=== PATIENT | female | born 1940 | race Caucasian/White ===

== ENCOUNTER 2022-02-08 13:16 | Emergency (ER) | payer MEDICARE, MEDICAID, SELFPAY ==
[2022-02-08] VITALS (15 sets, daily range): BP systolic 138–173; BP diastolic 64–87; PULSE 54–63; RESP 18; TEMP 36.6; O2SAT 94–98; BMI 25.4
--- NOTE | 2022-02-08 13:38 | DI.CT.S_ITS ---
PROCEDURE: CT CERVICAL SPINE WO CON INDICATIONS: Fall TECHNIQUE: Noncontrast 3 mm thick sections acquired from the skull base to the T4 level. Sagittal and coronal reformats were then constructed. For radiation dose reduction, the following was used: automated exposure control, adjustment of mA and/or kV according to patient size. COMPARISON: None. FINDINGS: Image quality: Excellent. Bones: Moderate overall spondylosis. No fracture or traumatic subluxation. There is overall straightening normal cervical lordosis. Soft tissues: Apically emphysema and scarring. No actionable thyroid nodule identified. No prevertebral soft tissue swelling. There is soft tissue pannus, likely chronic at C1/C2. IMPRESSION: Moderate overall spondylosis. No acute fracture or traumatic subluxation of the cervical spine. Dictated by: Bry Teresa M.D. on 02/08/2022 at 14:20 Approved by: Bry Teresa M.D. on 02/08/2022 at 14:22
--- NOTE | 2022-02-08 13:39 | ED_ITS ---
HPI - Fall General Chief Complaint: Fall Stated Complaint: GLF Time Seen by Provider: 02/08/22 13:23 Source: patient and EMS Mode of arrival: EMS History of Present Illness HPI Narrative: 81-year-old female. Not on anticoagulation. Is brought in by EMS after it was reported that she was going to go use the restroom and fell forward hitting her face on the toilet. The patient states that she just lost her balance. She thinks that she missed the toilet and hit her head. There was no loss of consciousness. No vision changes. She is no extremity injuries. No back pain. Review of Systems Constitutional Comments: No headache Eyes Comments: No vision changes Cardiovascular Comments: No chest pain or palpitations Respiratory Comments: No problems breathing Gastrointestinal Comments: No abdominal pain Integumentary/Breasts Comments: Bruising above left eye Neurologic Comments: No lightheadedness or dizziness Hematologic/Lymphatic On Anticoagulants: No Patient History Substance Use Type: does not use Exam Initial Vital Signs Initial Vital Signs: Vital Signs Temperature 98 F 02/08/22 13:20 Pulse Rate 54 L 02/08/22 13:20 Respiratory Rate 18 02/08/22 13:20 Blood Pressure 173/74 H 02/08/22 13:20 Pulse Oximetry 96 02/08/22 13:20 Oxygen Delivery Method 02/08/22 13:20 Const General: cooperative and comfortable HENMT Face and sinus: other (Contusion above left thigh) Eyes Pupils: PERRL EOM: EOM intact bilaterally Other: Contusion above left eye Chest Chest: No tenderness Resp Effort & Inspection: normal respiratory effort Auscultation: clear to auscultation bilaterally Cardio Rate: regular rate Rhythm: regular rhythm Back/Spine/Pelvis Cervical Spine: cervical muscular tenderness and No cervical spinal tenderness Skin Other: Contusion above left eye. Neuro General: patient alert, patient awake, patient oriented x3 and moves all ext remities Speech: speech normal Extrem General: capillary refill normal Psych Appearance: grossly normal and well kempt Course Orders Ordered: ED Orders 02/08/22 13:38 CT cervical spine wo con Stat 02/08/22 13:39 CT head/brain wo con Stat Vital Signs Vital signs: Vital Signs - 8 hr 02/08/22 13:20 02/08/22 13:22 02/08/22 13:23 Temperature 98 F Pulse Rate 54 L Respiratory Rate 18 Blood Pressure 173/74 H 173/74 H Pulse Oximetry 96 96 Oxygen Delivery Method Room Air 02/08/22 13:58 02/08/22 13:59 02/08/22 13:59 Temperature Pulse Rate 59 L 57 L Respiratory Rate Blood Pressure 172/72 H Pulse Oximetry 97 Oxygen Delivery Method 02/08/22 14:00 02/08/22 14:01 02/08/22 14:01 Temperature Pulse Rate 56 L 56 L Respiratory Rate Blood Pressure 156/71 H Pulse Oximetry 98 98 Oxygen Delivery Method MDM - Fall Imaging Data CT - cervical spine: Radiologist's Impression: [address] [address] [address] Scan Report Signed Patient: Tracey Rodriguez MR#: [id number] : 1940 Acct:[id number] Age/Sex: 81 / F Date of Service: 02/08/22 Loc: ED Accession Number: [id number] ?? Procedure: CT cervical spine wo con Ordering Provider: Rodrigo Ramírez D.O. PROCEDURE:? CT CERVICAL SPINE WO CON ? INDICATIONS:? Fall ? TECHNIQUE:? Noncontrast 3 mm thick sections acquired from the skull base to the T4 level.? Sagittal and coronal reformats were then constructed.? For radiation dose reduction, the following was used:? automated exposure control, adjustment of mA and/or kV according to patient size.? ? COMPARISON:? None. ? FINDINGS:? Image quality:? Excellent.? ? Bones:? Moderate overall spondylosis.? No fracture or traumatic subluxation.? There is overall straightening normal cervical lordosis. ? Soft tissues:? Apically emphysema and scarring.? No actionable thyroid nodule identified. ?No prevertebral soft tissue swelling.? There is soft tissue pannus, likely chronic at C1/C2.? ? IMPRESSION:? Moderate overall spondylosis.? No acute fracture or traumatic subluxation of the cervical spine. ? Dictated by: Bry Teresa M.D. on 02/08/2022 at 14:20 ? ? Approved by: Bry Teresa M.D. on 02/08/2022 at 14:22? CT scan - head: Radiologist's Impression: [address] [address] [address] Scan Report Signed Patient: Tracey Rodriguez MR#: [id number] : 1940 Acct:[id number] Age/Sex: 81 / F Date of Service: 02/08/22 Loc: ED Accession Number: [id number] ?? Procedure: CT head/brain wo con Ordering Provider: Rodrigo Ramírez D.O. PROCEDURE:? CT HEAD/BRAIN WO CON ? INDICATIONS:? Fall with contusion above left eye ? TECHNIQUE:? Noncontrast 4.5 mm thick angled axial sections acquired from the foramen magnum to the vertex, with coronal and sagittal reformats.? For radiation dose reduction, the following was used:? automated exposure control, adjustment of mA and/or kV according to patient size.? ? COMPARISON:? None. ? FINDINGS:? Image quality: Excellent ? CSF spaces: Basal cisterns are patent. Lateral ventricles are symmetric. Volume:? Periventricular white matter hypoattenuation is commonly seen with chronic small vessel disease. Volume loss is present. These findings are [id number] ? Brain: No intracranial hemorrhage. Hoffman-white differentiation is grossly maintained. ? Craniofacial structures:? Left supraorbital soft tissue contusion.? No displaced fracture. ? IMPRESSION:? No displaced fracture.? left supraorbital soft tissue contusion.? No acute intracranial abnormality.? ? ? Dictated by: Bry Teresa M.D. on 02/08/2022 at 14:18 ? ? Approved by: Bry Teresa M.D. on 02/08/2022 at 14:20?? MDM Narrative Medical decision making narrative: CT scan showed no signs of fracture. Has a contusion above the left eye. No other injuries found on the exam nor reported by the patient. Will discharge patient back to her living facility. Discharge Plan Departure Patient Disposition: Home Clinical Impression: Contusion of eye, left Instructions: How to Prevent Falls Activity Restrictions/Additional Instructions: You can continue to take all of your medications as directed. I do recommend that you place some ice above the left eye. Return to the emergency department for any new or worsening symptoms. Referrals: Jc Lepe MD [Primary Care Provider] -
--- NOTE | 2022-02-08 13:39 | DI.CT.S_ITS ---
PROCEDURE: CT HEAD/BRAIN WO CON INDICATIONS: Fall with contusion above left eye TECHNIQUE: Noncontrast 4.5 mm thick angled axial sections acquired from the foramen magnum to the vertex, with coronal and sagittal reformats. For radiation dose reduction, the following was used: automated exposure control, adjustment of mA and/or kV according to patient size. COMPARISON: None. FINDINGS: Image quality: Excellent CSF spaces: Basal cisterns are patent. Lateral ventricles are symmetric. Volume: Periventricular white matter hypoattenuation is commonly seen with chronic small vessel disease. Volume loss is present. These findings are [id number] Brain: No intracranial hemorrhage. Hoffman-white differentiation is grossly maintained. Craniofacial structures: Left supraorbital soft tissue contusion. No displaced fracture. IMPRESSION: No displaced fracture. left supraorbital soft tissue contusion. No acute intracranial abnormality. Dictated by: Bry Teresa M.D. on 02/08/2022 at 14:18 Approved by: Bry Teresa M.D. on 02/08/2022 at 14:20
--- NOTE | 2022-02-08 15:15 | PC.NURSE ---
called to send back to [facility], no answer, message left.
--- NOTE | 2022-02-08 16:13 | PC.NURSE ---
called [facility], requested they come transport pt back pt is discharged and i was told she can take a taxi instructed facility based on her recent fall and hx of falls we would not discharge her to return by taxi and pt would be returning via [facility] for safest discharge.
== END 2022-02-08 17:55 | disposition home or self-care (01) ==
PROVIDERS: Emergency Provider Emergency Medicine; PCP Family Medicine Sports Medicine
DX: S00.12XA Contusion of left eyelid and periocular area, initial encounter (principal); W18.30XA Fall on same level, unspecified, initial encounter
CPT/HCPCS: 70450; 72125; 99284

== ENCOUNTER 2023-08-29 00:39 | Emergency (ER) | payer MEDICARE, MEDICAID, SELFPAY ==
[2023-08-29] VITALS (14 sets, daily range): BP systolic 130–180; BP diastolic 56–83; PULSE 61–77; RESP 18–20; TEMP 36.6; O2SAT 96–98; BMI 26.2
--- NOTE | 2023-08-29 00:44 | ED_ITS ---
HPI - Weakness General Chief complaint: Dizziness Stated complaint: Dizziness/ fall Time Seen by Provider: 08/29/23 00:40 History of Present Illness HPI Narrative: 82-year-old female presents from assisted living facility for generalized weakness after a ground level fall. Patient was getting up to turn the TV off when she tripped and fell. She denies hitting her head, denies loss of consciousness. She states that she thinks she may have hit her elbow but denies pain at that site. Patient states that she has not eaten or drank very much over the last several days due to the of her [id number]. When she was assessed by the paramedics she had orthostatic vital signs with blood pressure dropping significantly after changing position and so she was brought to the emergency department for evaluation. Patient is alert and oriented x3, states she feels globally weak, denies other complaints. Related Data Allergies Allergy/AdvReac Type Severity Reaction Status Date / Time No Known Drug Allergies Allergy Verified 08/29/23 04:04 Review of Systems Review of Systems Narrative: See HPI Patient History Substance Use Type: does not use Exam Initial Vital Signs Initial Vital Signs: Vital Signs Pulse Rate 73 08/29/23 00:43 Pulse Oximetry 97 08/29/23 00:43 Const: Awake, alert, no acute distress, frail Cardiac: regular rate, regular rhythm RESP: unlabored, clear bilaterally, no wheezing GI: Soft, nontender, nondistended MSK: No deformity, no reproducible tenderness to palpation Skin: Warm, Dry, intact, no rashes Neuro: AO x3, CN II-XII grossly intact, moves all extremities Course Orders Ordered: ED Orders 08/29/23 00:44 EKG-12 Lead Stat 08/29/23 00:45 CBC Auto Diff [Complete Blood Count AUTO DIFF] Stat CMP [Comprehensive Metabolic Panel] Stat MAG [Magnesium] Stat 08/29/23 03:30 UA Complete [Urinalysis and Microscopic] Stat Vital Signs Vital signs: Vital Signs - 8 hr 08/29/23 00:43 08/29/23 00:46 08/29/23 00:46 Temperature Pulse Rate 73 62 Respiratory Rate Blood Pressure 130/56 L Pulse Oximetry 97 97 Oxygen Delivery Method 08/29/23 00:51 08/29/23 01:00 08/29/23 01:01 Temperature 97.9 F Pulse Rate 61 63 Respiratory Rate 20 Blood Pressure 130/56 L 137/63 Pulse Oximetry 98 98 Oxygen Delivery Method Room Air 08/29/23 01:01 08/29/23 01:30 08/29/23 01:30 Temperature Pulse Rate 64 70 Respiratory Rate Blood Pressure 157/69 H Pulse Oximetry 98 98 Oxygen Delivery Method 08/29/23 02:00 08/29/23 02:00 08/29/23 02:30 Temperature Pulse Rate 70 70 Respiratory Rate Blood Pressure 160/70 H Pulse Oximetry 96 97 Oxygen Delivery Method 08/29/23 02:30 08/29/23 03:00 08/29/23 03:00 Temperature Pulse Rate 72 Respiratory Rate 18 Blood Pressure 147/67 H 152/71 H Pulse Oximetry 98 Oxygen Delivery Method 08/29/23 03:30 08/29/23 03:30 08/29/23 04:00 Temperature Pulse Rate 71 Respiratory Rate 18 Blood Pressure 155/70 H 159/72 H Pulse Oximetry 97 Oxygen Delivery Method 08/29/23 04:00 08/29/23 04:30 08/29/23 04:30 Temperature Pulse Rate 75 72 Respiratory Rate Blood Pressure 180/78 H Pulse Oximetry 96 97 Oxygen Delivery Method Room Air 08/29/23 05:00 08/29/23 05:00 08/29/23 05:30 Temperature Pulse Rate 71 77 Respiratory Rate Blood Pressure 168/83 H Pulse Oximetry 96 96 Oxygen Delivery Method Room Air MDM - Weakness Lab Data 08/29/23 00:45 08/29/23 00:45 Labs: Lab Results 08/29/23 08/29/23 Range/Units 00:45 03:30 WBC 6.7 (4.5-11.0) X10^3/uL RBC 4.09 (4.0-5.2) X10^6/uL Hgb 11.8 L (12.0-16.0) g/dL Hct 36.0 (36-46) % MCV 88.0 (80-100) fL MCH 28.9 (26-34) PG MCHC 32.8 (30-36) % RDW 13.7 (11.6-14.8) % Plt Count 327 (150-400) X10^3/uL Neut % (Auto) 62.8 (50-75) % Lymph % (Auto) 24.3 L (25-40) % [place] % (Auto) 8.8 (3-14) % Eos % (Auto) 3.7 (2-4) % Baso % (Auto) 0.4 (0-2) % Neut # (Auto) 4200 (3267-9661) /uL Lymph # (Auto) 1600 (8197-9816) /uL [place] # (Auto) 600 (0-900) /uL Eos # (Auto) 200 (0-450) /uL Baso # (Auto) 0 (0-100) /uL Sodium 137 (137-145) mmol/L Potassium 4.0 (3.4-5.1) mmol/L Chloride 108 H (98-107) mmol/L Carbon Dioxide 23 (22-32) mmol/L BUN 20 H (7-17) mg/dL Creatinine 1.26 H (0.52-1.04) mg/dL Estimated GFR 42 L (>60) mL/min BUN/Creatinine Ratio 15.9 (6-22) Glucose 125 H (80-110) mg/dL Calcium 8.4 (8.4-10.2) mg/dL Magnesium 2.2 (1.6-2.3) mg/dL Total Bilirubin 0.4 (0.2-1.3) mg/dL AST 23 (14-36) IU/L ALT 14 (<35) IU/L Alkaline Phosphatase 211 H (38-126) U/L Total Protein 7.1 (6.3-8.2) g/dL Albumin 4.1 (3.5-5.0) g/dL Globulin 3.0 (1.7-4.1) g/dL Albumin/Globulin Ratio 1.4 (1.0-2.8) Urine Color Yellow Urine Appearance Clear Urine pH 6.5 (4.5-8.0) Ur Specific [place] 1.010 (1.000-1.035) Urine Protein Negative (Negative) Urine Glucose (UA) Negative (Negative) g/dL Urine Ketones Negative (NEGATIVE) Urine Occult Blood Negative (Negative) Urine Nitrate Negative (Negative) Urine Bilirubin Negative (NEGATIVE) Urine Urobilinogen 0.2 (0.2) E.U./dL Ur Leukocyte Esterase Negative (NEGATIVE) Urine RBC None seen (0-5/HPF) Urine WBC None seen (0-5/HPF) Ur Squamous Epith Cells 0-1 /hpf (0-5/HPF) Urine Bacteria None seen (None) Ur Culture Indicated? Cult not indicated Vol Urine Centrifuged 10ml (spun) MDM Narrative Medical decision making narrative: Patient presenting for generalized weakness after not eating or drinking very much for the last several days. Patient states that her appetite has been poor due to grief following the of her [id number]. No focal deficits on exam. Despite following the patient has no musculoskeletal complaints. Laboratory work significant for WBC count 6.7, hemoglobin 11.8, platelets 327, sodium 137, potassium 4.0, creatinine 1.26, no priors for comparison. Other laboratory work within normal limits. Urinalysis negative for signs of infection. Patient given a L of IV fluids. Reassured by normal workup. Discharged back to her assisted living facility in stable condition. Discharge Plan Departure Patient Disposition: Home Clinical Impression: Generalized weakness Fall Qualifiers: Encounter type: initial encounter Qualified Code(s): W19.XXXA - Unspecified fall, initial encounter Instructions: DI for Dizziness-Nonvertigo Activity Restrictions/Additional Instructions: Your laboratory work today was reassuring. There are not any electrolyte abnormalities. Your generalized weakness was likely contributed to by not eating or drinking very much over the last several days. Do your best to eat full healthy meals and drink plenty of fluids. Referrals: Jc Lepe MD [Primary Care Provider] - Stand Alone Forms: Patient Portal/API
[2023-08-29 00:50] LABS: Add Manual Diff / Slide Review NO; Basophils Absolute Auto 0 /uL (0-100); Basophils Percent Auto 0.4 % (0-2); Eosinophils Absolute Auto 200 /uL (0-450); Eosinophils Percent Auto 3.7 % (2-4); Hemoglobin 11.8 g/dL (12.0-16.0); Lymphocytes Absolute Auto 1600 /uL (1100-4500); Lymphocytes Percent Auto 24.3 % (25-40); Mean Corpuscular HGB Conc 32.8 % (30-36); Mean Corpuscular Hemoglobin 28.9 PG (26-34); Monocytes Absolute Auto 600 /uL (0-900); Monocytes Percent Auto 8.8 % (3-14); Neutrophils Absolute Auto 4200 /uL (1500-7000); Neutrophils Percent Auto 62.8 % (50-75); Platelet Count 327 X10^3/uL (150-400); Red Blood Cell Count 4.09 X10^6/uL (4.0-5.2); Red Cell Distribution Width 13.7 % (11.6-14.8); White Blood Cell Count 6.7 X10^3/uL (4.5-11.0)
[2023-08-29 01:08] LABS: Alanine Aminotransferase 14 IU/L (<35); Albumin 4.1 g/dL (3.5-5.0); Albumin Globulin Ratio 1.4 (1.0-2.8); Alkaline Phosphatase 211 U/L (38-126); Aspartate Aminotransferase 23 IU/L (14-36); BUN Creatinine Ratio 15.9 (6-22); Bilirubin Total 0.4 mg/dL (0.2-1.3); Blood Urea Nitrogen 20 mg/dL (7-17); Calcium 8.4 mg/dL (8.4-10.2); Carbon Dioxide 23 mmol/L (22-32); Chloride 108 mmol/L (98-107); Estimated Glomerular Filt Rate 42 mL/min (>60); Glucose 125 mg/dL (80-110); HEMOLYSIS < 15 (0-50); Magnesium 2.2 mg/dL (1.6-2.3); Sodium 137 mmol/L (137-145); Total Protein 7.1 g/dL (6.3-8.2)
[2023-08-29 03:39] LABS: Appearance Urine UA CLEAR; Bilirubin Urine UA NEGATIVE (NEGATIVE); Color Urine UA YELLOW; Glucose Urine UA NEGATIVE (Negative); Ketones Urine UA NEGATIVE (NEGATIVE); Nitrite Urine UA NEGATIVE (Negative); Occult Blood Urine UA NEGATIVE (Negative); Protein Urine UA NEGATIVE (Negative); Urobilinogen Urine UA 0.2 E.U./dL (0.2)
[2023-08-29 03:53] LABS: Leukocyte Esterase Urine UA NEGATIVE (NEGATIVE); pH Urine UA 6.5 (4.5-8.0)
[2023-08-29 03:54] LABS: Bacteria Urine None Seen; Culture Indicated Urine Cult Not Indicated; RBC Urine None Seen (0-5/HPF); Squamous Epithelial Cell Urine 0-1 /HPF (0-5/HPF); Urine Volume 10mL (spun); WBC Urine None Seen (0-5/HPF)
== END 2023-08-29 05:51 | disposition home or self-care (01) ==
PROVIDERS: Emergency Provider Emergency Medicine; PCP Family Medicine Sports Medicine
DX: R53.1 Weakness (principal); R03.0 Elevated blood-pressure reading, without diagnosis of hypertension; W19.XXXA Unspecified fall, initial encounter
CPT/HCPCS: 80053; 81001; 83735; 85025; 93005; 99282

== ENCOUNTER 2023-10-26 23:53 | Emergency (ER) | payer MEDICARE, MEDICAID, SELFPAY ==
[2023-10-27] VITALS (30 sets, daily range): BP systolic 128–166; BP diastolic 60–95; PULSE 86–104; RESP 13–31; TEMP 36.8–36.9; O2SAT 70–98; BMI 23.0
[2023-10-27] MEDS: ONDANSETRON 4 MG/2 ML INJ IV ×2 (00:29→03:10)
--- NOTE | 2023-10-27 02:55 | ED_ITS ---
HPI - Nausea/Vomiting/Diarrhea <Bradley Galeas MD - Last Filed: 10/28/23 09:29> General Chief complaint: Nausea/Vomiting/Diarrhea Stated complaint: N/V Time Seen by Provider: 10/27/23 02:55 Source: patient and EMS Mode of arrival: EMS History of Present Illness HPI Narrative: 83-year-old female complains of a few hours duration of nausea, admits to vomiting of 2 episodes, no black or red color emesis, no abdominal pain or cramping, no loose stools, no black or red stools. She does not feel feverish. She also denies headache, neck pain, photophobia. She denies chest pain and shortness of breath. She has no pain in her back or flanks. She denies painful urination, change in urination, frequency of urination. She was transferred by EMS, still feels somewhat nauseated, still feels nauseated. Related Data Allergies Allergy/AdvReac Type Severity Reaction Status Date / Time aspirin Allergy Mild Verified 10/27/23 10:16 Review of Systems <Bradley Galeas MD - Last Filed: 10/28/23 09:29> Review of Systems Narrative: per HPI Patient History <Bradley Galeas MD - Last Filed: 10/28/23 09:29> Substance Use Type: does not use Exam <Bradley Galeas MD - Last Filed: 10/28/23 09:29> Narrative Exam Narrative: GENERAL: Well-developed patient, in mild distress due to nausea. HEAD: Atraumatic. Normocephalic. EYES: Pupils equal round and reactive. Extraocular motions intact. No scleral icterus. No injection or drainage. ENT: Nose without bleeding, purulent drainage. Throat without erythema, tonsillar hypertrophy or exudate. Airway patent. NECK: Trachea midline. Non tender CARDIOVASCULAR: Regular rate and rhythm without murmurs, gallops, or rubs. RESPIRATORY: Clear to auscultation. Breath sounds equal bilaterally. No wheezes, rales, or rhonchi. GASTROINTESTINAL: Abdomen soft, non-tender, nondistended. EXTREMITIES: No edema or joint tenderness. BACK: Nontender without deformity or crepitance. No flank tenderness. NEURO: AOx3. Nonfocal neuro exam SKIN: No rash or erythema of visible areas Initial Vital Signs Initial Vital Signs: Vital Signs Temperature 98.4 F 10/27/23 00:15 Pulse Rate 104 H 10/27/23 00:15 Respiratory Rate 18 10/27/23 00:15 Blood Pressure 159/74 H 10/27/23 00:15 Pulse Oximetry 96 10/27/23 00:15 Oxygen Delivery Method Room Air 10/27/23 00:15 <Ivis Perez MD - Last Filed: 10/28/23 07:09> Initial Vital Signs Initial Vital Signs: Vital Signs Temperature 98.4 F 10/27/23 00:15 Pulse Rate 104 H 10/27/23 00:15 Respiratory Rate 18 10/27/23 00:15 Blood Pressure 159/74 H 10/27/23 00:15 Pulse Oximetry 96 10/27/23 00:15 Oxygen Delivery Method Room Air 10/27/23 00:15 <Ofe Laguerre DO - Last Filed: 10/28/23 04:49> Initial Vital Signs Initial Vital Signs: Vital Signs Temperature 98.4 F 10/27/23 00:15 Pulse Rate 104 H 10/27/23 00:15 Respiratory Rate 18 10/27/23 00:15 Blood Pressure 159/74 H 10/27/23 00:15 Pulse Oximetry 96 10/27/23 00:15 Oxygen Delivery Method Room Air 10/27/23 00:15 Course <Bradley Galeas MD - Last Filed: 10/28/23 09:29> Orders Ordered: Discontinued Medications Aspirin (Aspirin 81 Mg Chew Tab) 324 mg PO NOW ONE Stop: 10/27/23 09:44 Last Admin: 10/27/23 10:17 Dose: Not Given Documented By: MPO Atorvastatin Calcium (Atorvastatin 20 Mg Tablet) 80 mg PO NOW ONE Stop: 10/27/23 17:20 Last Admin: 10/27/23 17:57 Dose: 80 mg Documented By: MPO Clopidogrel Bisulfate (Clopidogrel 75 Mg Tablet) 75 mg PO NOW ONE Stop: 10/27/23 17:20 Last Admin: 10/27/23 17:57 Dose: 75 mg Documented By: MPO Heparin Sodium (Porcine) (Heparin 5,000 Unit/Ml Vial) 3,500 unit 60 unit/kg (3500 unit) IV NOW ONE Stop: 10/27/23 07:26 Last Admin: 10/27/23 09:07 Dose: 3,500 unit Documented By: REBECCA Heparin Sodium/Dextrose (Heparin Drip) 25,000 unit in 500 mls @ 14.152 mls/hr IV CONT MARVIN; Protocol Last Titration: 10/27/23 20:29 Dose: 0 units/kg/hr, 0 mls/hr Documented By: Co-signed By: DELORIS Titration: 10/27/23 15:21 Dose: 8 units/kg/hr, 9.435 mls/hr Documented By: GUILLERMINA Co-signed By: SHERRI Titration: 10/27/23 14:21 Dose: 0 units/kg/hr, 0 mls/hr Documented By: SHERRI Co-signed By: [facility] Admin: 10/27/23 09:08 Dose: 12 units/kg/hr, 14.152 mls/hr Documented By: REBECCA Co-signed By: RENETTA Ondansetron HCl (Ondansetron 4 Mg/2 Ml Inj) 4 mg IV NOW ONE Stop: 10/27/23 00:04 Last Admin: 10/27/23 00:29 Dose: 4 mg Documented By: DELORIS Ondansetron HCl (Ondansetron 4 Mg/2 Ml Inj) 4 mg IV NOW ONE Stop: 10/27/23 03:00 Last Admin: 10/27/23 03:10 Dose: 4 mg Documented By: DELORIS Vital Signs Vital signs: Vital Signs - 8 hr 10/27/23 20:50 Temperature 98.2 F Pulse Rate 87 Respiratory Rate 16 Blood Pressure 131/61 Pulse Oximetry 96 Oxygen Delivery Method Room Air <Ivis Perez MD - Last Filed: 10/28/23 07:09> Orders Ordered: Discontinued Medications Aspirin (Aspirin 81 Mg Chew Tab) 324 mg PO NOW ONE Stop: 10/27/23 09:44 Last Admin: 10/27/23 10:17 Dose: Not Given Documented By: GUILLERMINA Atorvastatin Calcium (Atorvastatin 20 Mg Tablet) 80 mg PO NOW ONE Stop: 10/27/23 17:20 Last Admin: 10/27/23 17:57 Dose: 80 mg Documented By: GUILLERMINA Clopidogrel Bisulfate (Clopidogrel 75 Mg Tablet) 75 mg PO NOW ONE Stop: 10/27/23 17:20 Last Admin: 10/27/23 17:57 Dose: 75 mg Documented By: GUILLERMINA Heparin Sodium (Porcine) (Heparin 5,000 Unit/Ml Vial) 3,500 unit 60 unit/kg (3500 unit) IV NOW ONE Stop: 10/27/23 07:26 Last Admin: 10/27/23 09:07 Dose: 3,500 unit Documented By: REBECCA Heparin Sodium/Dextrose (Heparin Drip) 25,000 unit in 500 mls @ 14.152 mls/hr IV CONT MARVIN; Protocol Last Titration: 10/27/23 20:29 Dose: 0 units/kg/hr, 0 mls/hr Documented By: Co-signed By: DELORIS Titration: 10/27/23 15:21 Dose: 8 units/kg/hr, 9.435 mls/hr Documented By: GUILLERMINA Co-signed By: SHERRI Titration: 10/27/23 14:21 Dose: 0 units/kg/hr, 0 mls/hr Documented By: SHERRI Co-signed By: KAYY Admin: 10/27/23 09:08 Dose: 12 units/kg/hr, 14.152 mls/hr Documented By: REBECCA Co-signed By: RENETTA Ondansetron HCl (Ondansetron 4 Mg/2 Ml Inj) 4 mg IV NOW ONE Stop: 10/27/23 00:04 Last Admin: 10/27/23 00:29 Dose: 4 mg Documented By: DELORIS Ondansetron HCl (Ondansetron 4 Mg/2 Ml Inj) 4 mg IV NOW ONE Stop: 10/27/23 03:00 Last Admin: 10/27/23 03:10 Dose: 4 mg Documented By: DELORIS Vital Signs Vital signs: Vital Signs - 8 hr 10/27/23 20:50 Temperature 98.2 F Pulse Rate 87 Respiratory Rate 16 Blood Pressure 131/61 Pulse Oximetry 96 Oxygen Delivery Method Room Air <Ofe Laguerre DO - Last Filed: 10/28/23 04:49> Orders Ordered: Discontinued Medications Aspirin (Aspirin 81 Mg Chew Tab) 324 mg PO NOW ONE Stop: 10/27/23 09:44 Last Admin: 10/27/23 10:17 Dose: Not Given Documented By: GUILLERMINA Atorvastatin Calcium (Atorvastatin 20 Mg Tablet) 80 mg PO NOW ONE Stop: 10/27/23 17:20 Last Admin: 10/27/23 17:57 Dose: 80 mg Documented By: GUILLERMINA Clopidogrel Bisulfate (Clopidogrel 75 Mg Tablet) 75 mg PO NOW ONE Stop: 10/27/23 17:20 Last Admin: 10/27/23 17:57 Dose: 75 mg Documented By: GUILLERMINA Heparin Sodium (Porcine) (Heparin 5,000 Unit/Ml Vial) 3,500 unit 60 unit/kg (3500 unit) IV NOW ONE Stop: 10/27/23 07:26 Last Admin: 10/27/23 09:07 Dose: 3,500 unit Documented By: REBECCA Heparin Sodium/Dextrose (Heparin Drip) 25,000 unit in 500 mls @ 14.152 mls/hr IV CONT MARVIN; Protocol Last Titration: 10/27/23 20:29 Dose: 0 units/kg/hr, 0 mls/hr Documented By: Co-signed By: DELORIS Titration: 10/27/23 15:21 Dose: 8 units/kg/hr, 9.435 mls/hr Documented By: GUILLERMINA Co-signed By: SHERRI Titration: 10/27/23 14:21 Dose: 0 units/kg/hr, 0 mls/hr Documented By: SHERRI Co-signed By: [facility] Admin: 10/27/23 09:08 Dose: 12 units/kg/hr, 14.152 mls/hr Documented By: REBECCA Co-signed By: RENETTA Ondansetron HCl (Ondansetron 4 Mg/2 Ml Inj) 4 mg IV NOW ONE Stop: 10/27/23 00:04 Last Admin: 10/27/23 00:29 Dose: 4 mg Documented By: DELORIS Ondansetron HCl (Ondansetron 4 Mg/2 Ml Inj) 4 mg IV NOW ONE Stop: 10/27/23 03:00 Last Admin: 10/27/23 03:10 Dose: 4 mg Documented By: DELORIS Vital Signs Vital signs: Vital Signs - 8 hr 10/27/23 20:50 Temperature 98.2 F Pulse Rate 87 Respiratory Rate 16 Blood Pressure 131/61 Pulse Oximetry 96 Oxygen Delivery Method Room Air MDM - Nausea/Vomiting/Diarrhea <Bradley Galeas MD - Last Filed: 10/28/23 09:29> Lab Data Attestation: I reviewed the patient's lab results. Lab results narrative: WBC 14k, CMP unremarkable, initial troponin non-measurable, Resp pathogens panel negative 10/27/23 00:30 10/27/23 00:30 Labs: Lab Results 10/27/23 10/27/23 10/27/23 Range/Units 00:30 03:15 06:44 WBC 14.5 H (4.5-11.0) X10^3/uL RBC 4.68 (4.0-5.2) X10^6/uL Hgb 13.4 (12.0-16.0) g/dL Hct 41.2 (36-46) % MCV 87.9 (80-100) fL MCH 28.5 (26-34) PG MCHC 32.4 (30-36) % RDW 14.8 (11.6-14.8) % Plt Count 322 (150-400) X10^3/uL Neut % (Auto) 89.1 H (50-75) % Lymph % (Auto) 5.6 L (25-40) % [place] % (Auto) 3.8 (3-14) % Eos % (Auto) 1.1 L (2-4) % Baso % (Auto) 0.4 (0-2) % Neut # (Auto) 94627 H (1457-3409) /uL Lymph # (Auto) 800 L (7982-8568) /uL [place] # (Auto) 600 (0-900) /uL Eos # (Auto) 200 (0-450) /uL Baso # (Auto) 100 (0-100) /uL APTT (25.1-36.5) SECONDS Sodium 136 L (137-145) mmol/L Potassium 4.4 (3.4-5.1) mmol/L Chloride 107 (98-107) mmol/L Carbon Dioxide 23 (22-32) mmol/L BUN 21 H (7-17) mg/dL Creatinine 1.08 H (0.52-1.04) mg/dL Estimated GFR 50 L (>60) mL/min BUN/Creatinine Ratio 19.4 (6-22) Glucose 133 H (80-110) mg/dL Calcium 8.8 (8.4-10.2) mg/dL Total Bilirubin 0.5 (0.2-1.3) mg/dL AST 34 (14-36) IU/L ALT 13 (<35) IU/L Alkaline Phosphatase 248 H (38-126) U/L Ammonia < 9 L (9-30) umol/L Troponin I < 0.012 0.175 H* (0.01-0.034) ng/mL Total Protein 7.8 (6.3-8.2) g/dL Albumin 4.3 (3.5-5.0) g/dL Globulin 3.5 (1.7-4.1) g/dL Albumin/Globulin Ratio 1.2 (1.0-2.8) Lipase 98 (23-300) U/L Chlamy pneumoniae PCR (Not Detect) Adenovirus (PCR) (Not Detect) B.parapertussis DNA PCR (Not Detecte) Coronavirus OC43 (PCR) (Not Detect) Coronavirus HKU1 (PCR) (Not Detect) Coronavirus 229E (PCR) (Not Detect) SARS-CoV-2 (PCR) (Not Detecte) Coronavirus NL63 (PCR) (Not Detect) Human Metapneumovir PCR (Not Detect) Influenza Type A (PCR) (Not Detect) Influenza Type B (PCR) (Not Detect) M. pneumoniae (PCR) (Not Detect) Parainfluenza 1 (PCR) (Not Detect) Parainfluenza 2 (PCR) (Not Detect) Parainfluenza 3 (PCR) (Not Detect) Parainfluenza 4 (PCR) (Not Detect) RSV (PCR) (Not Detect) Entero/Rhino (PCR) (Not Detect) 10/27/23 10/27/23 10/27/23 Range/Units 08:12 09:15 09:55 WBC (4.5-11.0) X10^3/uL RBC (4.0-5.2) X10^6/uL Hgb (12.0-16.0) g/dL Hct (36-46) % MCV (80-100) fL MCH (26-34) PG MCHC (30-36) % RDW (11.6-14.8) % Plt Count (150-400) X10^3/uL Neut % (Auto) (50-75) % Lymph % (Auto) (25-40) % [place] % (Auto) (3-14) % Eos % (Auto) (2-4) % Baso % (Auto) (0-2) % Neut # (Auto) (8115-6455) /uL Lymph # (Auto) (0274-5751) /uL [place] # (Auto) (0-900) /uL Eos # (Auto) (0-450) /uL Baso # (Auto) (0-100) /uL APTT 35 (25.1-36.5) SECONDS Sodium (137-145) mmol/L Potassium (3.4-5.1) mmol/L Chloride (98-107) mmol/L Carbon Dioxide (22-32) mmol/L BUN (7-17) mg/dL Creatinine (0.52-1.04) mg/dL Estimated GFR (>60) mL/min BUN/Creatinine Ratio (6-22) Glucose (80-110) mg/dL Calcium (8.4-10.2) mg/dL Total Bilirubin (0.2-1.3) mg/dL AST (14-36) IU/L ALT (<35) IU/L Alkaline Phosphatase (38-126) U/L Ammonia (9-30) umol/L Troponin I 0.474 H* (0.01-0.034) ng/mL Total Protein (6.3-8.2) g/dL Albumin (3.5-5.0) g/dL Globulin (1.7-4.1) g/dL Albumin/Globulin Ratio (1.0-2.8) Lipase (23-300) U/L Chlamy pneumoniae PCR Not detected (Not Detect) Adenovirus (PCR) Not detected (Not Detect) B.parapertussis DNA PCR Not detected (Not Detecte) Coronavirus OC43 (PCR) Not detected (Not Detect) Coronavirus HKU1 (PCR) Not detected (Not Detect) Coronavirus 229E (PCR) Not detected (Not Detect) SARS-CoV-2 (PCR) Not detected (Not Detecte) Coronavirus NL63 (PCR) Not detected (Not Detect) Human Metapneumovir PCR Not detected (Not Detect) Influenza Type A (PCR) Not detected (Not Detect) Influenza Type B (PCR) Not detected (Not Detect) M. pneumoniae (PCR) Not detected (Not Detect) Parainfluenza 1 (PCR) Not detected (Not Detect) Parainfluenza 2 (PCR) Not detected (Not Detect) Parainfluenza 3 (PCR) Not detected (Not Detect) Parainfluenza 4 (PCR) Not detected (Not Detect) RSV (PCR) Not detected (Not Detect) Entero/Rhino (PCR) Not detected (Not Detect) 0710/27/23 10/27/23 Range/Units 13:38 15:08 19:45 WBC (4.5-11.0) X10^3/uL RBC (4.0-5.2) X10^6/uL Hgb (12.0-16.0) g/dL Hct (36-46) % MCV (80-100) fL MCH (26-34) PG MCHC (30-36) % RDW (11.6-14.8) % Plt Count (150-400) X10^3/uL Neut % (Auto) (50-75) % Lymph % (Auto) (25-40) % [place] % (Auto) (3-14) % Eos % (Auto) (2-4) % Baso % (Auto) (0-2) % Neut # (Auto) (3677-5315) /uL Lymph # (Auto) (3641-5573) /uL [place] # (Auto) (0-900) /uL Eos # (Auto) (0-450) /uL Baso # (Auto) (0-100) /uL APTT 182 H* D 119 H* D 84 H* D (25.1-36.5) SECONDS Sodium (137-145) mmol/L Potassium (3.4-5.1) mmol/L Chloride (98-107) mmol/L Carbon Dioxide (22-32) mmol/L BUN (7-17) mg/dL Creatinine (0.52-1.04) mg/dL Estimated GFR (>60) mL/min BUN/Creatinine Ratio (6-22) Glucose (80-110) mg/dL Calcium (8.4-10.2) mg/dL Total Bilirubin (0.2-1.3) mg/dL AST (14-36) IU/L ALT (<35) IU/L Alkaline Phosphatase (38-126) U/L Ammonia (9-30) umol/L Troponin I (0.01-0.034) ng/mL Total Protein (6.3-8.2) g/dL Albumin (3.5-5.0) g/dL Globulin (1.7-4.1) g/dL Albumin/Globulin Ratio (1.0-2.8) Lipase (23-300) U/L Chlamy pneumoniae PCR (Not Detect) Adenovirus (PCR) (Not Detect) B.parapertussis DNA PCR (Not Detecte) Coronavirus OC43 (PCR) (Not Detect) Coronavirus HKU1 (PCR) (Not Detect) Coronavirus 229E (PCR) (Not Detect) SARS-CoV-2 (PCR) (Not Detecte) Coronavirus NL63 (PCR) (Not Detect) Human Metapneumovir PCR (Not Detect) Influenza Type A (PCR) (Not Detect) Influenza Type B (PCR) (Not Detect) M. pneumoniae (PCR) (Not Detect) Parainfluenza 1 (PCR) (Not Detect) Parainfluenza 2 (PCR) (Not Detect) Parainfluenza 3 (PCR) (Not Detect) Parainfluenza 4 (PCR) (Not Detect) RSV (PCR) (Not Detect) Entero/Rhino (PCR) (Not Detect) MDM Narrative Medical decision making narrative: 83-year-old female with nausea nonbloody emesis, still feels nauseated, was given Zofran shortly after arrival, persisting nausea. She denies abdominal pain, chest pain, flank pain, UTI symptoms, respiratory symptoms, headache, neck pain, photophobia. DDx consider gastroenteritis, enteritis, UTI, colitis, diverticulitis, ACS, [employer]ER etiology, DKA, side effect medication, migraine headache, other. Willl send labs, check EKG, troponin. We will hold on [employer] imaging for now. Repeat IV Zofran dose. Still feels nauseated, white blood cell count [id number], will obtain CT abdomen and pelvis. Repeat interval troponin. CT abdomen and pelvis with IV contrast. Impressions: ?Relative excess fluid within the distal small bowel and within colon, and mild wall enhancement of the ileum, raising the possibility of enteritis. No bowel obstruction. Sigmoid diverticula without diverticulitis. Prior cholecystectomy. Prior hysterectomy. Additional findings include atherosclerotic changes of the vessels, simple left renal cyst, degenerative changes of the lower lumbar spine.? Tele radiology report [id number], CT Abd/Pelvis suggestive of enteritis, however repeat troponin resulted and is elevated consistent with NSTEMI, still no chest pain, cardiology consult pending, signed out to [facility] ED shift physician Dr Perez 720 Dr Perez, care is assumed Medical records review: that is from [facility] are reviewed. Primary care note from February 17 2023 is reviewed. Hypertension, emphysema with chronic cough were further evaluated. It does not look like she has been seen by Cardiology in at least a year. I do not see any indication of cardiac stress testing echocardiogram or catheterization recently. her problem list includes cardiomyopathy, coronary artery disease sleep apnea, COPD hypertension and reflux . Dr. Khan from [facility] is listed as her seed specialist however I see no notes indicating that she has seen him in the last number of years Lab Test results independently reviewed as above. Pertinent findings: Chemistries are fairly reassuring with initial creatinine lower than prior visit at 1 Initial troponin is undetectable. CBC shows leukocytosis at 14.5 with significant left shift Independently reviewed EKG: EKG shows sinus rhythm at a rate of 98. Low voltage overall but no acute ischemic changes Imaging studies independently reviewed: Chest x-ray shows flattened diaphragms, no significant cardiomegaly, emphysematous changes with some tethering in the left lower lung field. No acute abnormalities appreciated Consultations:[id number] care is reviewed with Cardiology, Dr. Cohn. Agreed with starting heparin, aspirin, recommended repeating troponin is still significantly elevated recommended transfer with a diagnosis of acute coronary syndrome. [facility] reportedly has a bed available. They have asked us to wait till 4:00 p.m. when the bed is available they will contact accepting physician. Have not yet spoken with either Cardiology or medicine to confirm that they are willing to accept the patient when the bed is available. Transfer center was very clear that we did not need to speak with an accepting physician until a bed was available. Patient and son are notified that we are anticipating transfer to [facility]. 430pm phone call to [facility], they now had no bed availability. [facility] is checking to see if we may be able to transfer there. Will also begin calling [place] and the [facility]. Patient remains pain-free, nausea free, heparin is running. 520pm discussed with seed specialist, Dr. Wilcox from [facility]. Accepts the patient, recommends telemetry with admission to the hospitalist service. Given the fact that she can not take aspirin he did recommend 75 of Plavix and continuing her 80 mg of atorvastatin, both of these are ordered. [address] Ny, hospitalist at [place] has accepted the patient. Transfer center anticipates bed availability around 21:00 and will call in bed is available. Patient's son would vastly prefer that she be transferred to [facility] rather than all the way to [place]. We will, again, make sure that they clearly do not have bed availability Treatments: With initial concerns for abdominal pain and vomiting, she was given Zofran. When dramatically elevated troponin with significant interval change was appreciated she was started on heparin. EKG was obtained. We did attempt to give the patient aspirin and she informed us that she has a severe allergy with hives. We will hold the aspirin at this time Re-evaluation/Discussion: 83-year-old woman who initially presented with abdominal pain, workup was initially unremarkable with CT scan showing excessive fluid in her small bowel but no small bowel obstruction, evidence of infection, no thickened bowel wall. Labs were initially unremarkable. Initial plan was to try p.o. challenge and sent her home, in the interest of being thorough a repeat troponin was ordered and, surprisingly, with significantly elevated. Patient was independently re-evaluated by me, labs and initial workup done. Explained to patient the concerns. We will start heparin, EKG has not yet been obtained and will be done. Understands need for admission. Dr. Laguerre patient transferred to [facility] without issue. <Ivis Perez MD - Last Filed: 10/28/23 07:09> Lab Data Labs: Lab Results 10/27/23 10/27/23 10/27/23 Range/Units 00:30 03:15 06:44 WBC 14.5 H (4.5-11.0) X10^3/uL RBC 4.68 (4.0-5.2) X10^6/uL Hgb 13.4 (12.0-16.0) g/dL Hct 41.2 (36-46) % MCV 87.9 (80-100) fL MCH 28.5 (26-34) PG MCHC 32.4 (30-36) % RDW 14.8 (11.6-14.8) % Plt Count 322 (150-400) X10^3/uL Neut % (Auto) 89.1 H (50-75) % Lymph % (Auto) 5.6 L (25-40) % [place] % (Auto) 3.8 (3-14) % Eos % (Auto) 1.1 L (2-4) % Baso % (Auto) 0.4 (0-2) % Neut # (Auto) 32082 H (0475-1793) /uL Lymph # (Auto) 800 L (4871-3602) /uL [place] # (Auto) 600 (0-900) /uL Eos # (Auto) 200 (0-450) /uL Baso # (Auto) 100 (0-100) /uL APTT (25.1-36.5) SECONDS Sodium 136 L (137-145) mmol/L Potassium 4.4 (3.4-5.1) mmol/L Chloride 107 (98-107) mmol/L Carbon Dioxide 23 (22-32) mmol/L BUN 21 H (7-17) mg/dL Creatinine 1.08 H (0.52-1.04) mg/dL Estimated GFR 50 L (>60) mL/min BUN/Creatinine Ratio 19.4 (6-22) Glucose 133 H (80-110) mg/dL Calcium 8.8 (8.4-10.2) mg/dL Total Bilirubin 0.5 (0.2-1.3) mg/dL AST 34 (14-36) IU/L ALT 13 (<35) IU/L Alkaline Phosphatase 248 H (38-126) U/L Ammonia < 9 L (9-30) umol/L Troponin I < 0.012 0.175 H* (0.01-0.034) ng/mL Total Protein 7.8 (6.3-8.2) g/dL Albumin 4.3 (3.5-5.0) g/dL Globulin 3.5 (1.7-4.1) g/dL Albumin/Globulin Ratio 1.2 (1.0-2.8) Lipase 98 (23-300) U/L Chlamy pneumoniae PCR (Not Detect) Adenovirus (PCR) (Not Detect) B.parapertussis DNA PCR (Not Detecte) Coronavirus OC43 (PCR) (Not Detect) Coronavirus HKU1 (PCR) (Not Detect) Coronavirus 229E (PCR) (Not Detect) SARS-CoV-2 (PCR) (Not Detecte) Coronavirus NL63 (PCR) (Not Detect) Human Metapneumovir PCR (Not Detect) Influenza Type A (PCR) (Not Detect) Influenza Type B (PCR) (Not Detect) M. pneumoniae (PCR) (Not Detect) Parainfluenza 1 (PCR) (Not Detect) Parainfluenza 2 (PCR) (Not Detect) Parainfluenza 3 (PCR) (Not Detect) Parainfluenza 4 (PCR) (Not Detect) RSV (PCR) (Not Detect) Entero/Rhino (PCR) (Not Detect) 10/27/23 10/27/23 10/27/23 Range/Units 08:12 09:15 09:55 WBC (4.5-11.0) X10^3/uL RBC (4.0-5.2) X10^6/uL Hgb (12.0-16.0) g/dL Hct (36-46) % MCV (80-100) fL MCH (26-34) PG MCHC (30-36) % RDW (11.6-14.8) % Plt Count (150-400) X10^3/uL Neut % (Auto) (50-75) % Lymph % (Auto) (25-40) % [place] % (Auto) (3-14) % Eos % (Auto) (2-4) % Baso % (Auto) (0-2) % Neut # (Auto) (2824-4009) /uL Lymph # (Auto) (5204-5023) /uL [place] # (Auto) (0-900) /uL Eos # (Auto) (0-450) /uL Baso # (Auto) (0-100) /uL APTT 35 (25.1-36.5) SECONDS Sodium (137-145) mmol/L Potassium (3.4-5.1) mmol/L Chloride (98-107) mmol/L Carbon Dioxide (22-32) mmol/L BUN (7-17) mg/dL Creatinine (0.52-1.04) mg/dL Estimated GFR (>60) mL/min BUN/Creatinine Ratio (6-22) Glucose (80-110) mg/dL Calcium (8.4-10.2) mg/dL Total Bilirubin (0.2-1.3) mg/dL AST (14-36) IU/L ALT (<35) IU/L Alkaline Phosphatase (38-126) U/L Ammonia (9-30) umol/L Troponin I 0.474 H* (0.01-0.034) ng/mL Total Protein (6.3-8.2) g/dL Albumin (3.5-5.0) g/dL Globulin (1.7-4.1) g/dL Albumin/Globulin Ratio (1.0-2.8) Lipase (23-300) U/L Chlamy pneumoniae PCR Not detected (Not Detect) Adenovirus (PCR) Not detected (Not Detect) B.parapertussis DNA PCR Not detected (Not Detecte) Coronavirus OC43 (PCR) Not detected (Not Detect) Coronavirus HKU1 (PCR) Not detected (Not Detect) Coronavirus 229E (PCR) Not detected (Not Detect) SARS-CoV-2 (PCR) Not detected (Not Detecte) Coronavirus NL63 (PCR) Not detected (Not Detect) Human Metapneumovir PCR Not detected (Not Detect) Influenza Type A (PCR) Not detected (Not Detect) Influenza Type B (PCR) Not detected (Not Detect) M. pneumoniae (PCR) Not detected (Not Detect) Parainfluenza 1 (PCR) Not detected (Not Detect) Parainfluenza 2 (PCR) Not detected (Not Detect) Parainfluenza 3 (PCR) Not detected (Not Detect) Parainfluenza 4 (PCR) Not detected (Not Detect) RSV (PCR) Not detected (Not Detect) Entero/Rhino (PCR) Not detected (Not Detect) 10/27/23 10/27/23 10/27/23 Range/Units 13:38 15:08 19:45 WBC (4.5-11.0) X10^3/uL RBC (4.0-5.2) X10^6/uL Hgb (12.0-16.0) g/dL Hct (36-46) % MCV (80-100) fL MCH (26-34) PG MCHC (30-36) % RDW (11.6-14.8) % Plt Count (150-400) X10^3/uL Neut % (Auto) (50-75) % Lymph % (Auto) (25-40) % [place] % (Auto) (3-14) % Eos % (Auto) (2-4) % Baso % (Auto) (0-2) % Neut # (Auto) (1234-9722) /uL Lymph # (Auto) (3678-7207) /uL [place] # (Auto) (0-900) /uL Eos # (Auto) (0-450) /uL Baso # (Auto) (0-100) /uL APTT 182 H* D 119 H* D 84 H* D (25.1-36.5) SECONDS Sodium (137-145) mmol/L Potassium (3.4-5.1) mmol/L Chloride (98-107) mmol/L Carbon Dioxide (22-32) mmol/L BUN (7-17) mg/dL Creatinine (0.52-1.04) mg/dL Estimated GFR (>60) mL/min BUN/Creatinine Ratio (6-22) Glucose (80-110) mg/dL Calcium (8.4-10.2) mg/dL Total Bilirubin (0.2-1.3) mg/dL AST (14-36) IU/L ALT (<35) IU/L Alkaline Phosphatase (38-126) U/L Ammonia (9-30) umol/L Troponin I (0.01-0.034) ng/mL Total Protein (6.3-8.2) g/dL Albumin (3.5-5.0) g/dL Globulin (1.7-4.1) g/dL Albumin/Globulin Ratio (1.0-2.8) Lipase (23-300) U/L Chlamy pneumoniae PCR (Not Detect) Adenovirus (PCR) (Not Detect) B.parapertussis DNA PCR (Not Detecte) Coronavirus OC43 (PCR) (Not Detect) Coronavirus HKU1 (PCR) (Not Detect) Coronavirus 229E (PCR) (Not Detect) SARS-CoV-2 (PCR) (Not Detecte) Coronavirus NL63 (PCR) (Not Detect) Human Metapneumovir PCR (Not Detect) Influenza Type A (PCR) (Not Detect) Influenza Type B (PCR) (Not Detect) M. pneumoniae (PCR) (Not Detect) Parainfluenza 1 (PCR) (Not Detect) Parainfluenza 2 (PCR) (Not Detect) Parainfluenza 3 (PCR) (Not Detect) Parainfluenza 4 (PCR) (Not Detect) RSV (PCR) (Not Detect) Entero/Rhino (PCR) (Not Detect) MDM Narrative Medical decision making narrative: 83-year-old female with nausea nonbloody emesis, still feels nauseated, was given Zofran shortly after arrival, persisting nausea. She denies abdominal pain, chest pain, flank pain, UTI symptoms, respiratory symptoms, headache, neck pain, photophobia. We will send labs, check EKG, troponin. We will hold on CLOTH DESIGNER imaging for now. Repeat IV Zofran dose. Still feels nauseated, white blood cell count [id number], will obtain CT abdomen and pelvis. Repeat interval troponin. CT abdomen and pelvis with IV contrast. Impressions: ?Relative excess fluid within the distal small bowel and within colon, and mild wall enhancement of the ileum, raising the possibility of enteritis. No bowel obstruction. Sigmoid diverticula without diverticulitis. Prior cholecystectomy. Prior hysterectomy. Additional findings include atherosclerotic changes of the vessels, simple left renal cyst, degenerative changes of the lower lumbar spine.? Tele radiology report Repeat troponin elevated, will need transfer, signed out to oncoming ED shift physician Dr Perez 720 Dr Perez, care is assumed Medical records review: that is from [facility] are reviewed. Primary care note from February 17 2023 is reviewed. Hypertension, emphysema with chronic cough were further evaluated. It does not look like she has been seen by Cardiology in at least a year. I do not see any indication of cardiac stress testing echocardiogram or catheterization recently. her problem list includes cardiomyopathy, coronary artery disease sleep apnea, COPD hypertension and reflux . Dr. Khan from [facility] is listed as her seed specialist however I see no notes indicating that she has seen him in the last number of years Lab Test results independently reviewed as above. Pertinent findings: Chemistries are fairly reassuring with initial creatinine lower than prior visit at 1 Initial troponin is undetectable. CBC shows leukocytosis at 14.5 with significant left shift Independently reviewed EKG: EKG shows sinus rhythm at a rate of 98. Low voltage overall but no acute ischemic changes Imaging studies independently reviewed: Chest x-ray shows flattened diaphragms, no significant cardiomegaly, emphysematous changes with some tethering in the left lower lung field. No acute abnormalities appreciated Consultations:945 care is reviewed with Cardiology, Dr. Cohn. Agreed with starting heparin, aspirin, recommended repeating troponin is still significantly elevated recommended transfer with a diagnosis of acute coronary syndrome. [facility] reportedly has a bed available. They have asked us to wait till 4:00 p.m. when the bed is available they will contact accepting physician. Have not yet spoken with either Cardiology or medicine to confirm that they are willing to accept the patient when the bed is available. Transfer center was very clear that we did not need to speak with an accepting physician until a bed was available. Patient and son are notified that we are anticipating transfer to [facility]. 430pm phone call to [facility], they now had no bed availability. [facility] is checking to see if we may be able to transfer there. Will also begin calling [place] and [facility]. Patient remains pain-free, nausea free, heparin is running. 520pm discussed with seed specialist, Dr. Wilcox from [facility]. Accepts the patient, recommends telemetry with admission to the hospitalist service. Given the fact that she can not take aspirin he did recommend 75 of Plavix and continuing her 80 mg of atorvastatin, both of these are ordered. [address] Ny, hospitalist at [place] has accepted the patient. Transfer center anticipates bed availability around 21:00 and will call in bed is available. Patient's son would vastly prefer that she be transferred to [facility] rather than all the way to [place]. We will, again, make sure that they clearly do not have bed availability Treatments: With initial concerns for abdominal pain and vomiting, she was given Zofran. When dramatically elevated troponin with significant interval change was appreciated she was started on heparin. EKG was obtained. We did attempt to give the patient aspirin and she informed us that she has a severe allergy with hives. We will hold the aspirin at this time Re-evaluation/Discussion: 83-year-old woman who initially presented with abdominal pain, workup was initially unremarkable with CT scan showing excessive fluid in her small bowel but no small bowel obstruction, evidence of infection, no thickened bowel wall. Labs were initially unremarkable. Initial plan was to try p.o. challenge and sent her home, in the interest of being thorough a repeat troponin was ordered and, surprisingly, with significantly elevated. Patient was independently re-evaluated by me, labs and initial workup done. Explained to patient the concerns. We will start heparin, EKG has not yet been obtained and will be done. Understands need for admission. <Ofe Laguerre, DO - Last Filed: 10/28/23 04:49> Lab Data Labs: Lab Results 10/27/23 10/27/23 10/27/23 Range/Units 00:30 03:15 06:44 WBC 14.5 H (4.5-11.0) X10^3/uL RBC 4.68 (4.0-5.2) X10^6/uL Hgb 13.4 (12.0-16.0) g/dL Hct 41.2 (36-46) % MCV 87.9 (80-100) fL MCH 28.5 (26-34) PG MCHC 32.4 (30-36) % RDW 14.8 (11.6-14.8) % Plt Count 322 (150-400) X10^3/uL Neut % (Auto) 89.1 H (50-75) % Lymph % (Auto) 5.6 L (25-40) % [place] % (Auto) 3.8 (3-14) % Eos % (Auto) 1.1 L (2-4) % Baso % (Auto) 0.4 (0-2) % Neut # (Auto) 55058 H (8742-3851) /uL Lymph # (Auto) 800 L (1187-9119) /uL [place] # (Auto) 600 (0-900) /uL Eos # (Auto) 200 (0-450) /uL Baso # (Auto) 100 (0-100) /uL APTT (25.1-36.5) SECONDS Sodium 136 L (137-145) mmol/L Potassium 4.4 (3.4-5.1) mmol/L Chloride 107 (98-107) mmol/L Carbon Dioxide 23 (22-32) mmol/L BUN 21 H (7-17) mg/dL Creatinine 1.08 H (0.52-1.04) mg/dL Estimated GFR 50 L (>60) mL/min BUN/Creatinine Ratio 19.4 (6-22) Glucose 133 H (80-110) mg/dL Calcium 8.8 (8.4-10.2) mg/dL Total Bilirubin 0.5 (0.2-1.3) mg/dL AST 34 (14-36) IU/L ALT 13 (<35) IU/L Alkaline Phosphatase 248 H (38-126) U/L Ammonia < 9 L (9-30) umol/L Troponin I < 0.012 0.175 H* (0.01-0.034) ng/mL Total Protein 7.8 (6.3-8.2) g/dL Albumin 4.3 (3.5-5.0) g/dL Globulin 3.5 (1.7-4.1) g/dL Albumin/Globulin Ratio 1.2 (1.0-2.8) Lipase 98 (23-300) U/L Chlamy pneumoniae PCR (Not Detect) Adenovirus (PCR) (Not Detect) B.parapertussis DNA PCR (Not Detecte) Coronavirus OC43 (PCR) (Not Detect) Coronavirus HKU1 (PCR) (Not Detect) Coronavirus 229E (PCR) (Not Detect) SARS-CoV-2 (PCR) (Not Detecte) Coronavirus NL63 (PCR) (Not Detect) Human Metapneumovir PCR (Not Detect) Influenza Type A (PCR) (Not Detect) Influenza Type B (PCR) (Not Detect) M. pneumoniae (PCR) (Not Detect) Parainfluenza 1 (PCR) (Not Detect) Parainfluenza 2 (PCR) (Not Detect) Parainfluenza 3 (PCR) (Not Detect) Parainfluenza 4 (PCR) (Not Detect) RSV (PCR) (Not Detect) Entero/Rhino (PCR) (Not Detect) 10/27/23 10/27/23 10/27/23 Range/Units 08:12 09:15 09:55 WBC (4.5-11.0) X10^3/uL RBC (4.0-5.2) X10^6/uL Hgb (12.0-16.0) g/dL Hct (36-46) % MCV (80-100) fL MCH (26-34) PG MCHC (30-36) % RDW (11.6-14.8) % Plt Count (150-400) X10^3/uL Neut % (Auto) (50-75) % Lymph % (Auto) (25-40) % [place] % (Auto) (3-14) % Eos % (Auto) (2-4) % Baso % (Auto) (0-2) % Neut # (Auto) (2487-6111) /uL Lymph # (Auto) (7683-2839) /uL [place] # (Auto) (0-900) /uL Eos # (Auto) (0-450) /uL Baso # (Auto) (0-100) /uL APTT 35 (25.1-36.5) SECONDS Sodium (137-145) mmol/L Potassium (3.4-5.1) mmol/L Chloride (98-107) mmol/L Carbon Dioxide (22-32) mmol/L BUN (7-17) mg/dL Creatinine (0.52-1.04) mg/dL Estimated GFR (>60) mL/min BUN/Creatinine Ratio (6-22) Glucose (80-110) mg/dL Calcium (8.4-10.2) mg/dL Total Bilirubin (0.2-1.3) mg/dL AST (14-36) IU/L ALT (<35) IU/L Alkaline Phosphatase (38-126) U/L Ammonia (9-30) umol/L Troponin I 0.474 H* (0.01-0.034) ng/mL Total Protein (6.3-8.2) g/dL Albumin (3.5-5.0) g/dL Globulin (1.7-4.1) g/dL Albumin/Globulin Ratio (1.0-2.8) Lipase (23-300) U/L Chlamy pneumoniae PCR Not detected (Not Detect) Adenovirus (PCR) Not detected (Not Detect) B.parapertussis DNA PCR Not detected (Not Detecte) Coronavirus OC43 (PCR) Not detected (Not Detect) Coronavirus HKU1 (PCR) Not detected (Not Detect) Coronavirus 229E (PCR) Not detected (Not Detect) SARS-CoV-2 (PCR) Not detected (Not Detecte) Coronavirus NL63 (PCR) Not detected (Not Detect) Human Metapneumovir PCR Not detected (Not Detect) Influenza Type A (PCR) Not detected (Not Detect) Influenza Type B (PCR) Not detected (Not Detect) M. pneumoniae (PCR) Not detected (Not Detect) Parainfluenza 1 (PCR) Not detected (Not Detect) Parainfluenza 2 (PCR) Not detected (Not Detect) Parainfluenza 3 (PCR) Not detected (Not Detect) Parainfluenza 4 (PCR) Not detected (Not Detect) RSV (PCR) Not detected (Not Detect) Entero/Rhino (PCR) Not detected (Not Detect) 10/27/23 10/27/23 10/27/23 Range/Units 13:38 15:08 19:45 WBC (4.5-11.0) X10^3/uL RBC (4.0-5.2) X10^6/uL Hgb (12.0-16.0) g/dL Hct (36-46) % MCV (80-100) fL MCH (26-34) PG MCHC (30-36) % RDW (11.6-14.8) % Plt Count (150-400) X10^3/uL Neut % (Auto) (50-75) % Lymph % (Auto) (25-40) % [place] % (Auto) (3-14) % Eos % (Auto) (2-4) % Baso % (Auto) (0-2) % Neut # (Auto) (1734-1687) /uL Lymph # (Auto) (1725-5376) /uL [place] # (Auto) (0-900) /uL Eos # (Auto) (0-450) /uL Baso # (Auto) (0-100) /uL APTT 182 H* D 119 H* D 84 H* D (25.1-36.5) SECONDS Sodium (137-145) mmol/L Potassium (3.4-5.1) mmol/L Chloride (98-107) mmol/L Carbon Dioxide (22-32) mmol/L BUN (7-17) mg/dL Creatinine (0.52-1.04) mg/dL Estimated GFR (>60) mL/min BUN/Creatinine Ratio (6-22) Glucose (80-110) mg/dL Calcium (8.4-10.2) mg/dL Total Bilirubin (0.2-1.3) mg/dL AST (14-36) IU/L ALT (<35) IU/L Alkaline Phosphatase (38-126) U/L Ammonia (9-30) umol/L Troponin I (0.01-0.034) ng/mL Total Protein (6.3-8.2) g/dL Albumin (3.5-5.0) g/dL Globulin (1.7-4.1) g/dL Albumin/Globulin Ratio (1.0-2.8) Lipase (23-300) U/L Chlamy pneumoniae PCR (Not Detect) Adenovirus (PCR) (Not Detect) B.parapertussis DNA PCR (Not Detecte) Coronavirus OC43 (PCR) (Not Detect) Coronavirus HKU1 (PCR) (Not Detect) Coronavirus 229E (PCR) (Not Detect) SARS-CoV-2 (PCR) (Not Detecte) Coronavirus NL63 (PCR) (Not Detect) Human Metapneumovir PCR (Not Detect) Influenza Type A (PCR) (Not Detect) Influenza Type B (PCR) (Not Detect) M. pneumoniae (PCR) (Not Detect) Parainfluenza 1 (PCR) (Not Detect) Parainfluenza 2 (PCR) (Not Detect) Parainfluenza 3 (PCR) (Not Detect) Parainfluenza 4 (PCR) (Not Detect) RSV (PCR) (Not Detect) Entero/Rhino (PCR) (Not Detect) MDM Narrative Medical decision making narrative: 83-year-old female with nausea nonbloody emesis, still feels nauseated, was given Zofran shortly after arrival, persisting nausea. She denies abdominal pain, chest pain, flank pain, UTI symptoms, respiratory symptoms, headache, neck pain, photophobia. We will send labs, check EKG, troponin. We will hold on [employer] DES[employer] imaging for now. Repeat IV Zofran dose. Still feels nauseated, white blood cell count [id number], will obtain CT abdomen and pelvis. Repeat interval troponin. CT abdomen and pelvis with IV contrast. Impressions: ?Relative excess fluid within the distal small bowel and within colon, and mild wall enhancement of the ileum, raising the possibility of enteritis. No bowel obstruction. Sigmoid diverticula without diverticulitis. Prior cholecystectomy. Prior hysterectomy. Additional findings include atherosclerotic changes of the vessels, simple left renal cyst, degenerative changes of the lower lumbar spine.? Tele radiology report Repeat troponin elevated, will need transfer, signed out to [facility] ED shift physician Dr Perez 720 Dr Perez, care is assumed Medical records review: that is from [facility] are reviewed. Primary care note from February 17 2023 is reviewed. Hypertension, emphysema with chronic cough were further evaluated. It does not look like she has been seen by Cardiology in at least a year. I do not see any indication of cardiac stress testing echocardiogram or catheterization recently. her problem list includes cardiomyopathy, coronary artery disease sleep apnea, COPD hypertension and reflux . Dr. Khan from [facility] is listed as her seed specialist however I see no notes indicating that she has seen him in the last number of years Lab Test results independently reviewed as above. Pertinent findings: Chemistries are fairly reassuring with initial creatinine lower than prior visit at 1 Initial troponin is undetectable. CBC shows leukocytosis at 14.5 with significant left shift Independently reviewed EKG: EKG shows sinus rhythm at a rate of 98. Low voltage overall but no acute ischemic changes Imaging studies independently reviewed: Chest x-ray shows flattened diaphragms, no significant cardiomegaly, emphysematous changes with some tethering in the left lower lung field. No acute abnormalities appreciated Consultations:945 care is reviewed with Cardiology, Dr. Cohn. Agreed with starting heparin, aspirin, recommended repeating troponin is still significantly elevated recommended transfer with a diagnosis of acute coronary syndrome. [facility] reportedly has a bed available. They have asked us to wait till 4:00 p.m. when the bed is available they will contact accepting physician. Have not yet spoken with either Cardiology or medicine to confirm that they are willing to accept the patient when the bed is available. Transfer center was very clear that we did not need to speak with an accepting physician until a bed was available. Patient and son are notified that we are anticipating transfer to [facility]. 430pm phone call to [facility], they now had no bed availability. [facility] is checking to see if we may be able to transfer there. Will also begin calling [place] and [facility]. Patient remains pain-free, nausea free, heparin is running. 520pm discussed with seed specialist, Dr. Wilcox from [facility]. Accepts the patient, recommends telemetry with admission to the hospitalist service. Given the fact that she can not take aspirin he did recommend 75 of Plavix and continuing her 80 mg of atorvastatin, both of these are ordered. [address] Ny, hospitalist at [place] has accepted the patient. Transfer center anticipates bed availability around 21:00 and will call in bed is available. Patient's son would vastly prefer that she be transferred to [facility] rather than all the way to [place]. We will, again, make sure that they clearly do not have bed availability Treatments: With initial concerns for abdominal pain and vomiting, she was given Zofran. When dramatically elevated troponin with significant interval change was appreciated she was started on heparin. EKG was obtained. We did attempt to give the patient aspirin and she informed us that she has a severe allergy with hives. We will hold the aspirin at this time Re-evaluation/Discussion: 83-year-old woman who initially presented with abdominal pain, workup was initially unremarkable with CT scan showing excessive fluid in her small bowel but no small bowel obstruction, evidence of infection, no thickened bowel wall. Labs were initially unremarkable. Initial plan was to try p.o. challenge and sent her home, in the interest of being thorough a repeat troponin was ordered and, surprisingly, with significantly elevated. Patient was independently re-evaluated by me, labs and initial workup done. Explained to patient the concerns. We will start heparin, EKG has not yet been obtained and will be done. Understands need for admission. Dr. Laguerre patient transferred to [facility] without issue. Critical Care Time <Bradley Galeas MD - Last Filed: 10/28/23 09:29> Critical Care Time Critical Care Time: Yes Total Critical Care Time: 35 Attestation: The high probability of a clinically significant, sudden or life threatening deterioration of the [cardiovascular, gastrointestinal, , CLOTH DESIGNER] system(s) required my full and direct attention, intervention and personal management. The aggregate critical care time was [35] minutes. This time is in addition to time spent performing reported procedures but includes the following: [x] Data Review and interpretation [x] Patient assessment and monitoring of vital signs [x] Documentation [x] Medication orders and management Discharge Plan Departure Patient Disposition: [facility] Clinical Impression: Acute non-ST elevation myocardial infarction (NSTEMI) Referrals: Jc Lepe MD [Primary Care Provider] -
[2023-10-27 03:11] LABS: Add Manual Diff / Slide Review NO; Basophils Absolute Auto 100 /uL (0-100); Basophils Percent Auto 0.4 % (0-2); Eosinophils Absolute Auto 200 /uL (0-450); Eosinophils Percent Auto 1.1 % (2-4); Hematocrit 41.2 % (36-46); Hemoglobin 13.4 g/dL (12.0-16.0); Lymphocytes Absolute Auto 800 /uL (1100-4500); Lymphocytes Percent Auto 5.6 % (25-40); Mean Corpuscular HGB Conc 32.4 % (30-36); Mean Corpuscular Hemoglobin 28.5 PG (26-34); Mean Corpuscular Volume 87.9 fL (80-100); Monocytes Absolute Auto 600 /uL (0-900); Monocytes Percent Auto 3.8 % (3-14); Neutrophils Absolute Auto 12900 /uL (1500-7000); Neutrophils Percent Auto 89.1 % (50-75); Platelet Count 322 X10^3/uL (150-400); Red Blood Cell Count 4.68 X10^6/uL (4.0-5.2); Red Cell Distribution Width 14.8 % (11.6-14.8); White Blood Cell Count 14.5 X10^3/uL (4.5-11.0)
[2023-10-27 03:31] LABS: Alanine Aminotransferase 13 IU/L (<35); Albumin 4.3 g/dL (3.5-5.0); Albumin Globulin Ratio 1.2 (1.0-2.8); Alkaline Phosphatase 248 U/L (38-126); Aspartate Aminotransferase 34 IU/L (14-36); BUN Creatinine Ratio 19.4 (6-22); Bilirubin Total 0.5 mg/dL (0.2-1.3); Blood Urea Nitrogen 21 mg/dL (7-17); Calcium 8.8 mg/dL (8.4-10.2); Carbon Dioxide 23 mmol/L (22-32); Chloride 107 mmol/L (98-107); Estimated Glomerular Filt Rate 50 mL/min (>60); Globulin 3.5 g/dL (1.7-4.1); Glucose 133 mg/dL (80-110); HEMOLYSIS 36 (0-50); Lipase 98 U/L (23-300); Potassium 4.4 mmol/L (3.4-5.1); Sodium 136 mmol/L (137-145); Total Protein 7.8 g/dL (6.3-8.2)
[2023-10-27 03:43] LABS: Troponin I < 0.012 ng/mL (0.01-0.034)
[2023-10-27 03:50] LABS: Ammonia (NH3) < 9 umol/L (9-30)
--- NOTE | 2023-10-27 06:21 | DI.CT.S_ITS ---
PROCEDURE: CT ABDOMEN PELVIS W CON INDICATIONS: nausea, elev WBC TECHNIQUE: After the administration of intravenous contrast, axial sections acquired from the lung bases to the pubic symphysis. Coronal and sagittal reformats were performed. For radiation dose reduction, the following was used: automated exposure control, adjustment of mA and/or kV according to patient size. COMPARISON: [facility], CT, CT LUMBAR SPINE WITHOUT CONTRAST, 10/16/2020, 22:20. FINDINGS: Image quality: Diagnostic. Lower Chest: No significant findings. ABDOMEN: Liver: No solid mass. Gallbladder: Gallbladder is surgically absent. Biliary ducts: No biliary dilation. Pancreas: No ductal dilation. Spleen: Size is within normal limits. Adrenal Glands: No adrenal nodules. Kidneys and Ureters: No hydronephrosis. No solid mass. Simple appearing left renal cyst is seen measures 2.4 x 2.1 cm in size. No complex renal cystic lesion which requires follow up. Stomach and Bowel: There is a small hiatal hernia. No bowel obstruction. Mild fluid distension of the ileum with mild wall enhancement concerning for low-grade enteritis. No abnormal colonic wall thickening. Sigmoid diverticulosis is seen without evidence of acute diverticulitis. Peritoneum: No abnormal intraperitoneal fluid. No free air. Ventral Wall: No significant ventral hernia. Abdominal Nodes: No retroperitoneal or mesenteric adenopathy by size criteria. [id number] atherosclerotic calcifications in abdominal aorta are seen. Vessels: Aorta and inferior vena cava are normal in size. PELVIS: Pelvic Organs: Patient is status post hysterectomy. Bladder: No bladder wall thickening, accounting for underdistention. Pelvic Nodes: No enlarged lymph nodes. Miscellaneous: No inguinal hernias are seen. Bones: No aggressive osseous abnormality. Grade 1 anterolisthesis of L4 on L5 is again seen unchanged from prior study. No acute vertebral body compression fracture. IMPRESSION: 1. Finding is concerning for low to moderate grade enteritis involving ileum. No bowel obstruction. No abscess collection. No free fluid or free air. 2. Sigmoid diverticulosis without CT evidence of acute diverticulitis. 3. No obstructing renal stones or hydronephrosis. Simple left renal cyst as above. 4. Prior hysterectomy and cholecystectomy. No significant discrepancies from preliminary reading. Dictated by: Jose J Winn M.D. on 10/27/2023 at 8:19 Approved by: Jose J Winn M.D. on 10/27/2023 at 8:24
[2023-10-27 07:23] LABS: Troponin I 0.175 ng/mL (0.01-0.034)
--- NOTE | 2023-10-27 07:31 | DI.RAD.S_ITS ---
PROCEDURE: XR CHEST 1V INDICATIONS: NSTEMI TECHNIQUE: One view of the chest was acquired. COMPARISON: None. FINDINGS: Surgical changes and devices: Surgical clips are noted in gallbladder fossa. Lungs and pleura: Lungs are clear. No pleural effusions or pneumothorax. Mediastinum: Aortic arch calcifications are seen. Heart size is mildly enlarged. Bones and chest wall: No suspicious bony lesions. Overlying soft tissues appear unremarkable. IMPRESSION: No focal infiltrate, pleural effusion or pneumothorax. Dictated by: Jose J Winn M.D. on 10/27/2023 at 8:26 Approved by: Jose J Winn M.D. on 10/27/2023 at 8:26
--- NOTE | 2023-10-27 08:20 | EKG_ITS ---
[place] [id number] [place] [id number] Test Date: 2023-10-27 Pat Name: Tracey Rodriguez Department: Room: Gender: Female Computer Operations Technician: SINDY : 1940 Requested By: Order Number: [id number] Reading MD: Naga Love Measurements Intervals [place] Rate: 98 P: 48 SD: 176 QRS: 11 QRSD: 72 T: 43 QT: 316 QTc: 403 Interpretive Statements Normal sinus rhythm Low voltage QRS Possible Inferior infarct , age undetermined Electronically Signed On 10-28-2023 18:25:42 PDT by Naga Love
[2023-10-27 08:32] LABS: PTT Partial Thromboplastin Tim 35 SECONDS (25.1-36.5)
[2023-10-27] MEDS: HEPARIN 5,000 UNIT/ML VIAL 3500 UNIT IV (09:07)
[2023-10-27] MEDS: HEPARIN DRIP 25,000 UNIT/500 ML IV.SOLN 14.152 UNIT IV (09:08)
[2023-10-27 10:32] LABS: Troponin I 0.474 ng/mL (0.01-0.034)
[2023-10-27 10:35] LABS: Adenovirus Not Detected (Not Detect); B. parapertussis Not Detected (Not Detecte); Bordetella pertussis Not Detected (Not Detect); Chlamydophila pneumoniae Not Detected (Not Detect); Coronavirus 229E Not Detected (Not Detect); Coronavirus HKU1 Not Detected (Not Detect); Coronavirus NL 63 Not Detected (Not Detect); Coronavirus OC43 Not Detected (Not Detect); Human Metapneumovirus Not Detected (Not Detect); Human Rhinovirus/Enterovirus Not Detected (Not Detect); Influenza A Not Detected (Not Detect); Influenza B Not Detected (Not Detect); Mycoplasma pneumoniae Not Detected (Not Detect); Parainfluenza Virus 1 Not Detected (Not Detect); Parainfluenza Virus 2 Not Detected (Not Detect); Parainfluenza Virus 3 Not Detected (Not Detect); Parainfluenza Virus 4 Not Detected (Not Detect); Respiratory Syncytial Virus Not Detected (Not Detect); SARS- CoV-2 Not Detected (Not Detecte)
[2023-10-27 14:20] LABS: PTT Partial Thromboplastin Tim 182 SECONDS (25.1-36.5)
[2023-10-27 15:41] LABS: PTT Partial Thromboplastin Tim 119 SECONDS (25.1-36.5)
[2023-10-27] MEDS: ATORVASTATIN 20 MG TABLET 80 MG PO (17:57)
[2023-10-27] MEDS: CLOPIDOGREL 75 MG TABLET PO (17:57)
--- NOTE | 2023-10-27 18:15 | PC.NURSE ---
PROCESSING ENGINEER Note: Patient accepted by Dr. Anant Delgado. They will call back around 2100 this evening for bed assignment. [facility] unable to accept due to census. Tried multiple times to place patient closer with no luck.
[2023-10-27 20:21] LABS: PTT Partial Thromboplastin Tim 84 SECONDS (25.1-36.5)
--- NOTE | 2023-10-27 21:17 | PC.NURSE ---
Reported off to Ambulance. Pt transferred to [facility]. Heparin drip started on transport pump at 6 units/kg/hr.
--- NOTE | 2023-10-27 21:25 | PC.NURSE ---
[place] ETA 2049 Please call son with details and contact at [facility] Accepted: [facility] Cardiac/Tele [address] Rm #[id number]
== END 2023-10-27 21:31 | disposition short-term general hospital (02) ==
PROVIDERS: Emergency Medicine; Emergency Provider Emergency Medicine; PCP Family Medicine Sports Medicine
DX: I21.4 Non-ST elevation (NSTEMI) myocardial infarction (principal); I10 Essential (primary) hypertension; Z11.52 Encounter for screening for COVID-19; Z79.01 Long term (current) use of anticoagulants; Z79.899 Other long term (current) drug therapy
CPT/HCPCS: 36415; 71045; 74177; 80053; 82140; 83690; 84484; 85025; 85730; 87633; 93005; 96365; 96366; 96375; 96376; 99284; 99291; J1644; J2405; Q9967

== ENCOUNTER 2024-07-12 18:27 | Emergency (ER) | payer MEDICARE, MEDICAID, SELFPAY ==
[2024-07-12 18:32] VITALS: BP 160/72; PULSE 51; RESP 16; TEMP 36.5; O2SAT 100
--- NOTE | 2024-07-12 18:35 | DI.RAD.S_ITS ---
PROCEDURE: XR FOREARM LT 2V INDICATIONS: painful left forearm; atraumatic TECHNIQUE: 2 views of the forearm were acquired. COMPARISON: None. FINDINGS: Bones: Decreased mineralization. There is a questionable cortical disruption along the distal ulnar cortex. No definite radial fractures. Normal bone alignment. Soft tissues: No radiodense foreign body or soft tissue gas. IMPRESSION: Decreased mineralization. Findings suspicious for nondisplaced distal ulnar diaphyseal fracture. Correlate with point tenderness. Dictated by: Colleen Witt M.D. on 07/12/2024 at 19:30 Approved by: Colleen Witt M.D. on 07/12/2024 at 19:32
[2024-07-12 19:35] VITALS: PULSE 85
[2024-07-12 20:56] VITALS: BP 166/78; PULSE 78; RESP 18; O2SAT 100
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
[2024-07-12 21:34] VITALS: BP 179/78; PULSE 55; RESP 16; O2SAT 99
--- NOTE | 2024-07-12 21:40 | PC.NURSE ---
Called [facility] at [phone]. no answer at the nurses station. left voicemail and callback number.
== END 2024-07-12 21:42 | disposition home or self-care (01) ==
PROVIDERS: Emergency Provider Emergency Medicine; PCP Family Medicine Sports Medicine
DX: S52.202A Unspecified fracture of shaft of left ulna, initial encounter for closed fracture (principal); Z87.891 Personal history of nicotine dependence; F03.90 Unspecified dementia, unspecified severity, without behavioral disturbance, psychotic disturbance, mood disturbance, and anxiety
CPT/HCPCS: 29125; 73090; 99283

== ENCOUNTER → 2024-08-03 10:44 | Outpatient (CLI) | payer MEDICARE, MEDICAID, SELFPAY ==
--- NOTE | 2024-08-03 10:47 | DI.RAD.S_ITS ---
PROCEDURE: XR HAND RT MIN 3V INDICATIONS: Right thumb pain TECHNIQUE: 3 views of the hand(s) acquired. COMPARISON: None. FINDINGS: Bones: Generalized decreased osseous mineralization noted. Advanced radiocarpal arthritic changes include joint space narrowing and subchondral cysts. No fracture. First metacarpophalangeal joint arthritic changes Soft tissues: No suspicious soft tissue calcifications. IMPRESSION: Osteopenia and polyarticular arthritic changes. No fracture. Approved by: Lawrence Masterson M.D. on 08/03/2024 at 11:10
== END ==
PROVIDERS: PCP Student in an Organized Health Care Education/Training Program; Referring Provider Registered Nurse; Visit Provider Registered Nurse
DX: M85.841 Other specified disorders of bone density and structure, right hand (principal); M79.641 Pain in right hand
CPT/HCPCS: 73130

== ENCOUNTER 2024-10-12 07:17 | Emergency (ER) | payer MEDICARE, MEDICAID, SELFPAY ==
--- NOTE | 2024-10-12 07:21 | ED.EXTPRO ---
HPI - Extremity Problem General Chief complaint: Extremity Injury, Lower Stated complaint: Fall with Ankle Px Time Seen by Provider: 10/12/24 07:31 History of Present Illness HPI Narrative: Patient brought in by ambulance from [place] [facility]. Patient complains of left ankle and left foot pain. Patient is not on any blood thinners. Patient is DNR DNI with selective treatments. Patient is awake alert oriented self date of and event. She states she was on her way to the bathroom bumped into a counter top causing her to twist her left foot and ankle. Patient was given ice pack and Tylenol prior to departure. Patient denies any head pain neck pain back pain any other extremity pain. Patient able to flex and extend at the ankle and wiggle her toes. Left hip to toes exposed. Related Data Home Medications ?Medication ?Instructions ?Recorded ?Confirmed acetaminophen 300 mg-codeine 30 mg tab PO 08/03/24 08/03/24 tablet amlodipine 10 mg-benazepril 20 mg 1 cap PO DAILY 08/03/24 08/03/24 capsule amlodipine 2.5 mg-benazepril 10 mg 1 cap PO DAILY 08/03/24 08/03/24 capsule atorvastatin 80 mg tablet 80 mg PO DAILY 08/03/24 08/03/24 beclomethasone dipropionate 80 inhalation 08/03/24 08/03/24 mcg/actuation HFA breath activated aerosol (Qvar RediHaler) citalopram 20 mg tablet 20 mg PO DAILY 08/03/24 08/03/24 ezetimibe 10 mg tablet 10 mg PO DAILY 08/03/24 08/03/24 furosemide 20 mg tablet 20 mg PO DAILY 08/03/24 08/03/24 metoprolol succinate 25 mg mg PO 08/03/24 08/03/24 tablet,extended release 24 hr oxycodone 5 mg tablet mg PO 08/03/24 08/03/24 pantoprazole 40 mg tablet,delayed 40 mg PO DAILY 08/03/24 08/03/24 release primidone 50 mg tablet mg PO 08/03/24 08/03/24 quetiapine 50 mg tablet 50 mg PO ONCE PM 08/03/24 08/03/24 tiotropium bromide 2.5 2 puff inhalation DAILY 08/03/24 08/03/24 mcg/actuation mist for inhalation (Spiriva Respimat) Allergies Allergy/AdvReac Type Severity Reaction Status Date / Time aspirin Allergy Mild Verified 10/12/24 07:37 Review of Systems Review of Systems Narrative: GENERAL: Negative chills, fatigue, malaise, fever, sweats. HEENT: Negative sinus pain, ear pain, sore throat RESPIRATORY: Negative dyspnea, cough CARDIOVASCULAR: Negative chest pain, palpitations GASTROINTESTINAL: Negative vomiting, nausea, abdominal pain : Negative dysuria, frequency, hematuria MUSCULOSKELETAL: Positive muscle or bony pain SKIN: Negative rash, skin lesions NEUROLOGIC: Negative weakness, numbness ROS Unobtainable: All systems reviewed & are unremarkable except as noted in HPI and below Patient History Social History household members: none Smoking Status: Former smoker Exam Narrative Exam Narrative: GENERAL: in no distress, not toxic not dyspneic HEAD: Normocephalic. Nontender face and scalp and skull. EYES: Pupils equal round ENT: Mucous membranes moist. NECK: Trachea midline. No midline tenderness or step-off of the cervical thoracic or lumbar spine. No bruising injury seen on the back. CARDIOVASCULAR: Regular rate and rhythm RESPIRATORY: Clear to auscultation. Breath sounds equal bilaterally. No wheezes, rales, or rhonchi. GASTROINTESTINAL: Abdomen soft, non-tender EXTREMITIES: No gross deformities. Examination left lower extremity. Nontender hip and knee. Patient able to flex and extend at the knee and hip without discomfort. Patient left ankle nonedematous no bruising no deformity. Nontender medial and lateral malleolus. Skin is intact. There is mild edema to the dorsum of the foot. Strong pedal pulse brisk cap refills patient able to wiggle toes on the left. No skin injury seen. There is diffuse tenderness to the dorsum of the foot but no bruising. BACK: No flank tenderness. NEURO: AOx2. Clear speech, no facial droop light touch intact bilateral face hands and legs and feet. SKIN: Warm and dry PSYCH: Not anxious, is cooperative Initial Vital Signs Initial Vital Signs: Vital Signs Temperature 98.7 F 10/12/24 07:37 Pulse Rate 76 10/12/24 07:37 Respiratory Rate 17 10/12/24 07:37 Blood Pressure 177/71 H 10/12/24 07:37 Pulse Oximetry 98 06/17/25 07:37 Oxygen Delivery Method Room Air 10/12/24 07:37 Procedures Orthopedic Splinting/Casting Injury #1: Time of procedure: 09:49 Side: left Lower Extremity Injury Location: ankle and foot Lower Extremity Immobilizer: posterior splint Post splinting neuro exam: intact and no change Post splinting vascular exam: no change Placed by: Nursing Course Orders Ordered: Discontinued Medications Acetaminophen (Acetaminophen 325 Mg Tablet) 650 mg PO Q4H PRN PRN Reason: Fever/Mild Pain (1-3) Acetaminophen/Codeine Phosphate (Codeine/Acetaminophen 30/300 Tablet) 1 tab PO Q8HR PRN PRN Reason: pain Last Admin: 10/14/24 06:30 Dose: 1 tab Documented By: Admin: 10/12/24 17:56 Dose: 1 tab Documented By: Albuterol (Albuterol 2.5 Mg/3 Ml Neb (Adult)) 2.5 mg INH RTQ6HR [facility] Last Admin: 10/14/24 10:38 Dose: 2.5 mg Documented By: Admin: 10/14/24 08:40 Dose: Not Given Documented By: Admin: 10/14/24 03:51 Dose: Not Given Documented By: Admin: 10/13/24 21:20 Dose: Not Given Documented By: Admin: 10/13/24 15:01 Dose: 2.5 mg Documented By: Admin: 10/13/24 12:42 Dose: Not Given Documented By: Admin: 10/13/24 02:40 Dose: Not Given Documented By: Admin: 10/12/24 23:13 Dose: Not Given Documented By: CARSON Amlodipine Besylate (Amlodipine 5 Mg Tablet) 2.5 mg PO DAILY [facility] Last Admin: 10/14/24 09:10 Dose: 2.5 mg Documented By: Admin: 10/13/24 12:28 Dose: 2.5 mg Documented By: Atorvastatin Calcium (Atorvastatin 20 Mg Tablet) 80 mg PO BEDTIME [facility] Last Admin: 10/13/24 20:52 Dose: 80 mg Documented By: Admin: 10/12/24 23:05 Dose: 80 mg Documented By: CARSON Citalopram Hydrobromide (Citalopram 10 Mg Tablet) 20 mg PO BEDTIME [facility] Last Admin: 10/13/24 20:53 Dose: 20 mg Documented By: Admin: 10/12/24 23:05 Dose: 20 mg Documented By: CARSON Ezetimibe (Ezetimibe 10 Mg Tablet) 10 mg PO BEDTIME [facility] Last Admin: 10/13/24 21:20 Dose: 10 mg Documented By: Admin: 10/12/24 23:05 Dose: 10 mg Documented By: CARSON Fluticasone Propionate (Fluticasone 120 [place]/16 Gm [place].Susp) 1 spray NASAL DAILY [facility] Last Admin: 10/14/24 08:59 Dose: Not Given Documented By: Admin: 10/13/24 09:00 Dose: Not Given Documented By: Furosemide (Furosemide 20 Mg Tablet) 20 mg PO DAILY [facility] Last Admin: 10/14/24 09:09 Dose: 20 mg Documented By: Admin: 10/13/24 12:43 Dose: 20 mg Documented By: Metoprolol Succinate (Metoprolol Er 25 Mg Tablet) 25 mg PO DAILY [facility] Last Admin: 10/14/24 09:05 Dose: Not Given Documented By: Admin: 10/13/24 12:28 Dose: 25 mg Documented By: Pantoprazole Sodium (Pantoprazole Dr 20 Mg Tablet) 40 mg PO DAILY [facility] Last Admin: 10/14/24 08:59 Dose: 40 mg Documented By: Admin: 10/13/24 12:29 Dose: 40 mg Documented By: Primidone (Primidone 50 Mg Tablet) 75 mg PO BID [facility] Last Admin: 10/14/24 09:11 Dose: 75 mg Documented By: Admin: 10/13/24 21:21 Dose: 75 mg Documented By: Admin: 10/13/24 12:39 Dose: 75 mg Documented By: Admin: 10/12/24 23:05 Dose: 75 mg Documented By: CARSON Quetiapine Fumarate (Quetiapine 25 Mg Tablet) 50 mg PO BEDTIME [facility] Last Admin: 10/13/24 21:21 Dose: 50 mg Documented By: Admin: 10/12/24 23:05 Dose: 50 mg Documented By: CARSON Vital Signs Vital signs: Vital Signs - 8 hr 10/14/24 08:54 10/14/24 08:54 10/14/24 08:57 Temperature 98.1 F Pulse Rate 54 L 53 L Respiratory Rate 16 Blood Pressure 119/54 L 119/54 L Pulse Oximetry 98 95 Oxygen Delivery Method Room Air 10/14/24 09:00 10/14/24 09:05 10/14/24 10:21 Temperature Pulse Rate 53 L 53 L 65 Respiratory Rate Blood Pressure Pulse Oximetry 95 90 L Oxygen Delivery Method 10/14/24 10:30 10/14/24 10:39 Temperature Pulse Rate 59 L 67 Respiratory Rate 18 Blood Pressure Pulse Oximetry 97 96 Oxygen Delivery Method Room Air MDM - Extremity (Nontraumatic) Imaging Data Extremity x-ray #1: Radiologist's Impression: [address] [address] XRay Report Signed Patient: Tracey Rodriguez MR#: [id number] : 1940 Acct:[id number] Age/Sex: 83 / F Date of Service: 10/12/24 Loc: ED Accession Number: [id number] Procedure: XR knee LT 3V Ordering Provider: Obed Mtz MD PROCEDURE: XR KNEE LT 3V INDICATIONS: Pain/injury TECHNIQUE: 3 views of the knee were acquired. COMPARISON: None. FINDINGS AND IMPRESSION: Patella Jyoti, correlate with clinical exam for extensor mechanism symptoms. Moderate arthrosis, worst in the patellofemoral compartment. No acute displaced fracture. Small joint effusion. If there is high concern for further derangement, consider MRI evaluation. Dictated by: Bry Teresa M.D. on 10/12/2024 at 8:39 Approved by: Bry Teresa M.D. on 10/12/2024 at 8:40 Extremity x-ray #2: Radiologist's Impression: [address] [address] XRay Report Signed Patient: Tracey Rodriguez MR#: [id number] : 1940 Acct:[id number] Age/Sex: 83 / F Date of Service: 10/12/24 Loc: ED Accession Number: [id number] Procedure: XR foot LT min 3V Ordering Provider: Obed Mtz MD PROCEDURE: XR FOOT LT MIN 3V INDICATIONS: Pain/injury TECHNIQUE: 3 views of the foot were acquired. COMPARISON: None. FINDINGS AND IMPRESSION: Moderate 1st MTP arthrosis and valgus alignment. There is a questionable lucency and slight deformity at the distal 5th metatarsal shaft. Correlate with location of tenderness. Likely old injury seen at the 3rd distal metatarsal. No suspicious soft tissue calcifications. Dictated by: Bry Teresa M.D. on 10/12/2024 at 8:38 Approved by: Bry Teresa M.D. on 10/12/2024 at 8:39 Extremity x-ray #3: Radiologist's Impression: [address] [address] XRay Report Signed Patient: Tracey Rodriguez MR#: [id number] : 1940 Acct:[id number] Age/Sex: 83 / F Date of Service: 10/12/24 Loc: ED Accession Number: [id number] Procedure: XR ankle LT min 3V Ordering Provider: Obed Mtz MD PROCEDURE: XR ANKLE LT MIN 3V INDICATIONS: Pain/injury TECHNIQUE: 3 views of the ankle were acquired. COMPARISON: None. FINDINGS AND IMPRESSION: Mild arthrosis. Possible tiny avulsion fragment seen adjacent to the lateral malleolus on frontal view. Adjacent soft tissue swelling is present. Ligamentous injury is suspected. If there is high concern for further derangement, consider MRI evaluation. Dictated by: Bry Teresa M.D. on 10/12/2024 at 8:36 Approved by: Bry Teresa M.D. on 10/12/2024 at 8:37 [facility] Narrative Medical decision making narrative: Patient brought in by ambulance from [facility]. Patient complains of left ankle and left foot pain. Patient is not on any blood thinners. Patient is DNR DNI with selective treatments. Patient is awake alert oriented self date of and event. She states she was on her way to the bathroom bumped into a counter top causing her to twist her left foot and ankle. Patient was given ice pack and Tylenol prior to departure. Patient denies any head pain neck pain back pain any other extremity pain. Patient able to flex and extend at the ankle and wiggle her toes. Left hip to toes exposed. After history and exam, exam is reassuring. X-ray left knee left ankle left foot ordered. Pain is controlled. [facility] Medical records reviewed: No recent visit for this complaint Differential considered: Includes but not limited to ankle/foot fracture strain sprain dislocation, left knee strain Imaging studies independently reviewed: X-ray left knee small joint effusion, x-ray left foot questionable distal 5th metatarsal shaft fracture. X-ray left ankle possible lateral malleolus avulsion fracture Consultations: Re-evaluations: 8:57 a.m.. Reviewed results with patient. Patient able to fully flex and extend at the knee without any pain or discomfort. 12:00 p.m.. Nursing staff has contacted [facility]. They are unable to care for patient if she requires any kind of help for transfer or ambulation even with a walker. 2:51 p.m.. Patient's son at bedside. Reviewed with him and her that [facility] will not take her back because of needs of helping transfer and being in a walker. We are waiting for social work and physical therapy for evaluation for possible physical therapy rehab. They do understand. 4:30 p.m.. Physical therapy has seen patient. She has failed physical therapy evaluation, no social work available today. She will be boarding overnight. Social work to see patient tomorrow Discussion: Home medications have been ordered, diet has been ordered. Diagnosis: Left foot and ankle fracture 6:[address].: Bibi, Sign out to Dr. Levy. Social work to see patient. Failed physical therapy Discharge Plan Departure Patient Disposition: SNF Clinical Impression: Ankle fracture Qualifiers: Encounter type: initial encounter Fracture type: closed Laterality: left Qualified Code(s): S82.892A - Other fracture of left lower leg, initial encounter for closed fracture Prescriptions: No Action oxycodone 5 mg tablet PO quetiapine 50 mg tablet 50 mg PO ONCE PM amlodipine-benazepril 2.5-10 mg capsule 1 cap PO DAILY furosemide 20 mg tablet 20 mg PO DAILY atorvastatin 80 mg tablet 80 mg PO DAILY primidone 50 mg tablet PO Qvar RediHaler 80 mcg/actuation HFA aerosol breath activated inhalation acetaminophen-codeine 300-30 mg tablet PO ezetimibe 10 mg tablet 10 mg PO DAILY metoprolol succinate 25 mg tablet extended release 24 hr PO citalopram 20 mg tablet 20 mg PO DAILY Spiriva Respimat 2.5 mcg/actuation mist 2 puff inhalation DAILY amlodipine-benazepril 10-20 mg capsule 1 cap PO DAILY pantoprazole 40 mg tablet,delayed release (DR/EC) 40 mg PO DAILY
[2024-10-12 07:37] VITALS: BP 177/71; PULSE 76; RESP 17; TEMP 37.1; O2SAT 98
--- NOTE | 2024-10-12 09:06 | PC.NURSE ---
attempted to call yariel/pito palmer @ [phone]. no answer VM left w/ call back number.
--- NOTE | 2024-10-12 15:10 | PT.IIE ---
Physical Therapy Inpatient Evaluation/Re-Eval M1 PT/OT-IP Prior Functional Status Start: 10/12/24 18:14 Freq: Status: Active Protocol: Document 10/12/24 15:10 AB (Rec: 10/12/24 18:29 AB [id number]) Medical Review Prior Functional Status Medical History Yes Reviewed Communication able to make needs known; EEK Mobility and Gait pt stated taht she was modified independent with all mobilities and ambulation using a 4WW but tends not to use it who using the toilet; has h/o falls Social History Living Arrangements Assisted Living Number of Floors ( One Floor Floors) Number of Stairs To pt lives at [facility] Enter/Railing? Home Environment Standard Height Toilet,Walk in Shower Home Equipment Four Wheel Walker,Shower Seat without Backrest,Hand Held Shower,Grab Bars Near Toilet,Grab Bars In Shower M2 PT-IP Current Condition Start: 10/12/24 18:14 Freq: Status: Active Protocol: Document 10/12/24 15:10 AB (Rec: 10/12/24 18:29 AB [id number]) Physical Therapy Current Condition Current Condition Evaluation Date 10/12/24 Treatment Diagnosis Fall; L ankle fx; difficulty in walking Onset Date 10/12/24 M3 PT-IP Subjective Start: 10/12/24 18:14 Freq: Status: Active Protocol: Document 10/12/24 15:10 AB (Rec: 10/12/24 18:29 AB [id number]) Subjective Physical Therapy Visit Type Type Initial Evaluation Visit Start Time 15:10 Visit Stop Time 15:50 Number of INSIDE POLISHER Visits 0 Physical Therapy Visit Comments Patient Comments agreeable to do PT Therapy Pain Assessment Pain When Pain Assessed At Rest Pain Present Pain Present Pain Reported Location left foot and toe Intensity 8 Scale Used Numeric (0 - 10) Pain Behaviors Guarding,Holding Area Pain Management Distraction,Modification of Treatment,Re-positioning, Techniques Timing of Activity with Medications M4 PT-IP Mobility and Gait Start: 10/12/24 18:14 Freq: Status: Active Protocol: Document 10/12/24 15:10 AB (Rec: 10/12/24 18:29 AB [id number]) PT-Bed Mobility Assessment Supine to Sit Supine to Sit Standby Assistance Sit to Supine Sit to Supine Moderate Assistance,1 Person Assistance PT-Transfer Assessment Sit to and From Stand Sit to and from Minimal Assistance,1 Person Assistance,Use of Upper Stand Extremities Equipment Transfer Assistive Gait Belt,Front Wheeled Walker Device Orthotic/Prosthetic No Devices or Brace: Comments Mobility Comments pt in bed. pt's son initially in room with pt but stepped out to eat lunch after a few minutes in. obtained PLOF and home set up. BP: 173/77 pt completed supine to sit SBA with HOB elevated. able to sit on EOB CGA. educated pt on TDWB on LLE and if not able to do NWB. pt opted to do NWB for safety. completed sit to stand min A and max cues. able to stand max A for steadiness. attempted to take steps and only able to take 2 small steps max A using FWW. pt sat back on EOB. pt agreed to stand again after resting. sit to stand min A and able to side steps ~ 2 ft using FWW max A NWB on LLE. pt completed sit to supine mod A and max cues. positioned pt in bed. call light and table placed within reach. Gait Assessment Comments Gait Comments only able to take a few steps using FWW max A to position in bed PT-Balance Assessment Sitting Balance and Reactions Static Sitting Good Balance Ability Dynamic Sitting Fair Balance Ability Standing Balance and Reactions Static Standing Poor Balance Ability Dynamic Standing Poor Balance Ability Device Used FWW M5 PT-IP Objective Assessments Start: 10/12/24 18:14 Freq: Status: Active Protocol: Document 10/12/24 15:10 AB (Rec: 10/12/24 18:29 AB [id number]) Orientation Orientation/Cognition Level of Alertness Alert Orientation Name Language Function Hard of Hearing Ability Safety Awareness Decreased Safety Awareness Memory Description Short Term Impaired,Courtroom Deputy Impaired Gross Range of Motion Lower Extremity ROM Assessment Within Functional Limits Impairments L ankle on soft case and NT Strength Lower Extremity Strength Hip 4/5 Knee 4/5 Ankle L ankle NT Sensation Assessment Sensation Gross Sensation WNL Muscle Tone Muscle Tone WNL Yes M6 PT-IP Treatment Start: 10/12/24 18:14 Freq: Status: Active Protocol: Document 10/12/24 15:10 AB (Rec: 10/12/24 18:29 AB [id number]) Physical Therapy Treatment Education Education Provided Safety M7 PT-IP Assessment and Plan Start: 10/12/24 18:14 Freq: Status: Active Protocol: Document 10/12/24 15:10 AB (Rec: 10/12/24 18:29 AB [id number]) PT Summary Assessment and Plan Potential Rehabilitation Fair Potential Status of Condition Evolving at Evaluation Summary Impairments Pain,ROM,Strength,Balance,Coordination,Sensation,Tone, Cognition,Bed Mobility,Transfers,Gait,Activity Tolerance Assessment Summary pt is an 83 y/o F who presented to the ED after a fall with c/o L foot pain. pt with L ankle fracture and is TDWB. opted to do NWB on LLE for safety. pt requiring max A for standing balance using FWW and was only able to take a few steps using FWW max A and max cues for positioning in bed. pt lives at [facility]. d/c plan depending if [facility] will be able to provide 24/ max A to pt. pt also will need a w/c for mobility at this time and a FWW for transfers. Goals Bed Mobility Goal Independent Transfer Goal Minimal Assistance,Front Wheeled Walker Gait Goal Minimal Assistance,Front Wheel Walker Gait Distance 10 Other Goals improve transfers and ambulation using FWW ~ 25 ft SBA Days to Meet Goals 10 Frequency of Treatment Frequency Of Once a Day Treatment Treatment Plan Physical Therapy Bed Mobility Training,Transfer Training,Gait Training, Treatment Plan Therapeutic Exercise,Balance Retraining,Discharge Planning,Hot or Cold Pack,Neuromuscular Re-ed, Coordination Retraining,Manual Therapy Precautions Brace L ankle on soft cast Other Precautions falls Weight Bearing Status Weight Bearing Touch Down Weight Bearing Status Allowed Weight LLE TDWB Bearing Amount ( enter % or #) (%) Recommendations To Nursing Amount of Assist 2 Person Assist Needed Discharge Recommendations PT Discharge Home with 24/ Assist Available,Home Health,SNF Rehab, Recommendations Home vs SNF Equipment Needed for FWW, w/c Home Before Discharge Transportation Needs Wheelchair/Cabulance,Stretcher/Ambulance at Discharge - PT assist 2
[2024-10-12] MEDS: CODEINE/ACETAMINOPHEN 30/300 TABLET 1 TAB PO (17:56)
[2024-10-12 19:34] VITALS: PULSE 71; O2SAT 97
[2024-10-12 19:35] VITALS: BP 176/77; PULSE 72; RESP 17; O2SAT 94
--- NOTE | 2024-10-12 19:38 | PC.NURSE ---
Pt resting in [employer], [employer] on and working. Pt's left leg elevated on pillow, CMS intact, splint dry and intact. Cap refill <2. Pt denies pain at this time. Call light in reach.
--- NOTE | 2024-10-12 21:36 | PC.NURSE ---
Pt boarding in the department at this time. Pt has been moved to hospital bed, oriented to bed.
[2024-10-12] MEDS: QUETIAPINE 25 MG TABLET 50 MG PO (23:05)
[2024-10-12] MEDS: EZETIMIBE 10 MG TABLET PO (23:05)
[2024-10-12] MEDS: CITALOPRAM 10 MG TABLET 20 MG PO (23:05)
[2024-10-12] MEDS: PRIMIDONE 50 MG TABLET 75 MG PO (23:05)
[2024-10-12] MEDS: ATORVASTATIN 20 MG TABLET 80 MG PO (23:05)
[2024-10-13] VITALS (29 sets, daily range): BP systolic 154–180; BP diastolic 69–124; PULSE 63–94; RESP 16–22; TEMP 36.6–37; O2SAT 93–97
--- NOTE | 2024-10-13 06:23 | PC.NURSE ---
Repositioned pt, purewick intact. Left leg elevated on pillow. Pt resting with eyes shut, breathing even and unlabored. Call light in reach.
[2024-10-13] MEDS: METOPROLOL ER 25 MG TABLET PO (12:28)
[2024-10-13] MEDS: AMLODIPINE 5 MG TABLET 2.5 MG PO (12:28)
[2024-10-13] MEDS: PANTOPRAZOLE DR 20 MG TABLET 40 MG PO (12:29)
[2024-10-13] MEDS: PRIMIDONE 50 MG TABLET 75 MG PO ×2 (12:39→21:21)
[2024-10-13] MEDS: FUROSEMIDE 20 MG TABLET PO (12:43)
--- NOTE | 2024-10-13 14:39 | CM.DANOTE ---
ED FLAME HARDENER DCP Assessment Note: Pt is a 83yo female, resident of [place], is seen in the ED for a fall and fractured ankle. Pt lives at [facility]. Pt's Primary Care Provider is Dr. Shawn Richards MD and insurance is [employer]. Reviewed chart and discussed with multidisciplinary team pt's medical status and initial discharge needs. Per MD, no admission criteria for fracture, not surgical candidate. Per PT eval, recommending SNF Rehab. ED FLAME HARDENER met w/patient at bedside; introduced self and role. Pt was somnolent and gave consent for this FLAME HARDENER to speak with son/POA. Pt son confirmed pt's prior level of functioning and stated preference for discharge to SNF before returning to [facility]. Reviewed Medicare choice facilities, pt son only agreeable to [facility]. ED FLAME HARDENER sent initial referral to [facility] admissions via secure email, stated pt is accepted with [facility] Medicare authorization. Arranging transport for 10/14 at 11:00am via wheelchair van. ED FLAME HARDENER notified pt RN, ED Provider and WHISKEY FILTERER of transfer for 10/14. ED FLAME HARDENER also notified pt and pt son (via phone call). Attempted to call [facility] [employer], not able to connect or leave a voice message. PASRR completed and ED Provider signs for hospital exempt discharge. Discharge packet initiated by this FLAME HARDENER and placed in pt chart, notified ED WHISKEY FILTERER. Plan: Anticipating dc on 10/14 at 11:00am to [facility] via their wheelchair van. BROWN Reina Discharge Planning/Care Management CM Discharge Assessment Start: 10/13/24 14:22 Freq: Status: Active Protocol: Document 10/13/24 14:23 MW (Rec: 10/13/24 14:36 MW [id number]) Discharge Planning Assessment Assigned Discharge VANESA Robertson Adjunct Mathematics Instructor DPOA/Assigned Nelson Willoughby Designee Name Contact Information [phone] Advance Directives? Yes: Polst Has Patient been No admitted in last 30 days? Prior Living Assisted Living Arrangements Household Members none Type of Relies on Others transporation used prior to admit Facility Name [facility] Admitted From: Willing to Return to Yes Facility? Independent with ADL No 's Is patient alert and Yes oriented? DME Already Rented / FWW / Walker Owned Patient/Family Correction Facility Preference Comment [facility] only Barriers to Yes Discharge Discharge Plan Correction Facility Transportation Facility Van Arrangement Referrals Initiated Correction If patient plan is Yes SNF: Has PASSR been completed? Comment Boarding in ED - Insurance Auth obtained Medicare Choice List Yes Provided Medicare choice list family reviewed on electronic tablet with SNF/HH Preference [facility] only Review Status In Process Please Provide Date 10/13/24 Initial DC Assessment Was Performed Next Review Type Continued Stay Review
[2024-10-13] MEDS: ALBUTEROL 2.5 MG/3 ML NEB (ADULT) INH (15:01)
--- NOTE | 2024-10-13 17:41 | PC.NURSE ---
Turning schedule maintained for skin integrity.
--- NOTE | 2024-10-13 18:47 | PC.NURSE ---
Turning scheduled maintained for skin integrity. Heels floated and barrier cream applied to panis.
--- NOTE | 2024-10-13 19:24 | CM.SWNOTE ---
ED SOFA INSPECTOR Note: Pt boarding until [facility] acceptance and transfer on 10/14 at 11:00am. Transfer packet initiated for patient, in metal chart. - Pending H&P, DC summary and all other clinicals from stay - Pending signed medication list (already printed, just need MD signature) - Pending paper narcotic Rx (if any) Signed hospital exempt PASRR in transfer packet. RN-RN Report#: [phone]. Plan: Anticipating dc to [facility] Rehab on 10/14 at 11:00am. ED staff following for coordination of dc plans. BROWN Reina
[2024-10-13] MEDS: ATORVASTATIN 20 MG TABLET 80 MG PO (20:52)
[2024-10-13] MEDS: CITALOPRAM 10 MG TABLET 20 MG PO (20:53)
[2024-10-13] MEDS: EZETIMIBE 10 MG TABLET PO (21:20)
[2024-10-13] MEDS: QUETIAPINE 25 MG TABLET 50 MG PO (21:21)
--- NOTE | 2024-10-13 21:51 | PC.NURSE ---
No changes noted on pt at this time she is awaiting transfer [facility] tomorrow around 11 am 10/14/24
[2024-10-14] VITALS (10 sets, daily range): BP systolic 119; BP diastolic 54; PULSE 53–73; RESP 16–18; TEMP 36.7; O2SAT 90–98
--- NOTE | 2024-10-14 06:09 | PC.NURSE ---
Pt appears to be sleeping well. Visible chest rise and fall.
[2024-10-14] MEDS: CODEINE/ACETAMINOPHEN 30/300 TABLET 1 TAB PO (06:30)
--- NOTE | 2024-10-14 06:32 | PC.NURSE ---
Changed out Purwick during this time due to it not being in place. Patientt had accidentally removed from her brief.
[2024-10-14] MEDS: PANTOPRAZOLE DR 20 MG TABLET 40 MG PO (08:59)
[2024-10-14] MEDS: FUROSEMIDE 20 MG TABLET PO (09:09)
[2024-10-14] MEDS: AMLODIPINE 5 MG TABLET 2.5 MG PO (09:10)
[2024-10-14] MEDS: PRIMIDONE 50 MG TABLET 75 MG PO (09:11)
--- NOTE | 2024-10-14 10:24 | PC.NURSE ---
Pt up to BSC with 2 person assist. Large BM.
--- NOTE | 2024-10-14 10:36 | PC.NURSE ---
left lower leg splinted. Pt reports no pain when in bed or not moving. cap refill <2 seconds.
[2024-10-14] MEDS: ALBUTEROL 2.5 MG/3 ML NEB (ADULT) INH (10:38)
== END 2024-10-14 11:05 ==
PROVIDERS: Emergency Provider Family Medicine; PCP Student in an Organized Health Care Education/Training Program
DX: S82.62XA Displaced fracture of lateral malleolus of left fibula, initial encounter for closed fracture (principal); X50.1XXA Overexertion from prolonged static or awkward postures, initial encounter; Z87.891 Personal history of nicotine dependence
CPT/HCPCS: 29505; 29515; 73562; 73610; 73630; 94640; 97162; 97530; 99283; A9270; J7613

== ENCOUNTER 2025-02-14 21:14 | Emergency (ER) | payer MEDICARE, MEDICAID, SELFPAY ==
[2025-02-14] VITALS (9 sets, daily range): BP systolic 153–182; BP diastolic 72–116; PULSE 90–100; RESP 15–24; O2SAT 95–97
--- NOTE | 2025-02-14 21:19 | DI.RAD.S_ITS ---
PROCEDURE: XR CHEST 1V INDICATIONS: altered mental status TECHNIQUE: One view of the chest was acquired. COMPARISON: [facility], CR, XR CHEST 1V, 10/27/2023, 7:33. FINDINGS: Surgical changes and devices: Clips in the right upper quadrant. Lungs and pleura: Lungs are clear. No pleural effusions or pneumothorax. Mediastinum: Mediastinal contours appear unchanged. Heart size appears prominent. Bones and chest wall: No suspicious bony lesions. Prior right-sided rib fractures. Overlying soft tissues appear unremarkable. IMPRESSION: No acute cardiopulmonary abnormality is seen. Dictated by: Toni Blackman M.D. on 02/14/2025 at 22:08 Approved by: Toni Blackman M.D. on 02/14/2025 at 22:09
--- NOTE | 2025-02-14 21:26 | EKG_ITS ---
[facility] [id number] [place] [id number] Test Date: 2025-02-14 Pat Name: Tracey Rodriguez Department: Room: Gender: Female Dough Scaler And Mixer: LEON : 1940 Requested By: Order Number: [id number] Reading MD: Reji Oneal MD Measurements Intervals [place] Rate: 98 P: 71 CO: 162 QRS: 20 QRSD: 90 T: 120 QT: 328 QTc: 418 Interpretive Statements Poor data quality, interpretation may be adversely affected Sinus rhythm with fusion complexes Low voltage QRS Inferior infarct , age undetermined Electronically Signed On 02-15-2025 6:43:06 PDT by Reji Oneal MD
[2025-02-14 21:35] LABS: Add Manual Diff / Slide Review NO; Hematocrit 35.4 % (36-46); Hemoglobin 11.8 g/dL (12.0-16.0); Lymphocytes Absolute Auto 2100 /uL (1100-4500); Mean Corpuscular HGB Conc 33.2 % (30-36); Mean Corpuscular Hemoglobin 29.1 PG (26-34); Mean Corpuscular Volume 87.4 fL (80-100); Platelet Count 279 X10^3/uL (150-400)
[2025-02-14 21:45] LABS: Alanine Aminotransferase 10 IU/L (<35); Albumin 3.9 g/dL (3.5-5.0); Albumin Globulin Ratio 1.2 (1.0-2.8); Alkaline Phosphatase 184 U/L (38-126); Blood Urea Nitrogen 18 mg/dL (7-17); Calcium 8.9 mg/dL (8.4-10.2); Carbon Dioxide 23 mmol/L (22-32); Chloride 103 mmol/L (98-107); Creatine Kinase 45 U/L (30-135); Estimated Glomerular Filt Rate 52 mL/min (>60); Globulin 3.3 g/dL (1.7-4.1); Glucose 125 mg/dL (70-99); HEMOLYSIS < 15 (0-50); Lactate (Lactic Acid) 1.3 mmol/L (0.7-2.1); Potassium 3.6 mmol/L (3.4-5.1); Sodium 132 mmol/L (137-145); Total Protein 7.2 g/dL (6.3-8.2)
[2025-02-14 21:57] LABS: Troponin I < 0.012 ng/mL (0.01-0.034)
[2025-02-14 22:02] LABS: Procalcitonin 0.060 ng/mL (<0.5)
[2025-02-14 22:10] LABS: Ethanol (ETOH) < 10 mg/dL (<10)
--- NOTE | 2025-02-14 23:00 | ED.AMS ---
HPI - Altered Mental Status General Chief Complaint: Altered Mental Status Stated Complaint: AMS Time Seen by Provider: 02/14/25 22:12 Source: EMS Mode of arrival: EMS History of Present Illness HPI narrative: 84-year-old female with history of dementia, resident at [facility], noted by staff and son to have decreased mental status from baseline through the day today. Brought in by ambulance, had complaint of nausea, given ODT Zofran during transport. No reported recent cough, chest pain, abdominal pain, shortness of breath. No current antibiotics. Son would like testing to look for treatable causes of her change in mental status, reported that sodium had been low in the past, reported that she has had urine infections in the past. No current antibiotics. No fall, injury, traum known. No recent changes chronic medications known. Related Data Home Medications ?Medication ?Instructions ?Recorded ?Confirmed acetaminophen 300 mg-codeine 30 mg tab PO 08/03/24 08/03/24 tablet amlodipine 10 mg-benazepril 20 mg 1 cap PO DAILY 08/03/24 08/03/24 capsule amlodipine 2.5 mg-benazepril 10 mg 1 cap PO DAILY 08/03/24 08/03/24 capsule atorvastatin 80 mg tablet 80 mg PO DAILY 08/03/24 08/03/24 beclomethasone dipropionate 80 inhalation 08/03/24 08/03/24 mcg/actuation HFA breath activated aerosol (Qvar RediHaler) citalopram 20 mg tablet 20 mg PO DAILY 08/03/24 08/03/24 ezetimibe 10 mg tablet 10 mg PO DAILY 08/03/24 08/03/24 furosemide 20 mg tablet 20 mg PO DAILY 08/03/24 08/03/24 metoprolol succinate 25 mg mg PO 08/03/24 08/03/24 tablet,extended release 24 hr oxycodone 5 mg tablet mg PO 08/03/24 08/03/24 pantoprazole 40 mg tablet,delayed 40 mg PO DAILY 08/03/24 08/03/24 release primidone 50 mg tablet mg PO 08/03/24 08/03/24 quetiapine 50 mg tablet 50 mg PO ONCE PM 08/03/24 08/03/24 tiotropium bromide 2.5 2 puff inhalation DAILY 08/03/24 08/03/24 mcg/actuation mist for inhalation (Spiriva Respimat) Previous Rx's ?Medication ?Instructions ?Recorded cefdinir 300 mg capsule 300 mg PO BID 7 days #14 caps 02/15/25 cefdinir 300 mg capsule 300 mg PO BID 7 days #14 caps 02/15/25 Allergies Allergy/AdvReac Type Severity Reaction Status Date / Time aspirin Allergy Mild Verified 02/14/25 21:19 Patient History Social History household members: none tobacco type: cigarettes Exam Narrative Exam Narrative: GENERAL: Well-developed patient, in mild distress. HEAD: Atraumatic. Normocephalic. EYES: Pupils equal round and reactive. Extraocular motions intact. No scleral icterus. No injection or drainage. ENT: Nose without bleeding, purulent drainage. Throat without erythema, tonsillar hypertrophy or exudate. Airway patent. NECK: Trachea midline. Non tender CARDIOVASCULAR: Regular rate and rhythm without murmurs, gallops, or rubs. RESPIRATORY: Clear to auscultation. Breath sounds equal bilaterally. No wheezes, rales, or rhonchi. GASTROINTESTINAL: Abdomen soft, non-tender, nondistended. EXTREMITIES: No edema or joint tenderness. BACK: Nontender without deformity or crepitance. No flank tenderness. NEURO: AOx3. Motor functions grossly nonfocal. SKIN: No rash or erythema of visible areas Initial Vital Signs Initial Vital Signs: Vital Signs Pulse Rate 97 H 02/14/25 21:19 Respiratory Rate 21 02/14/25 21:19 Blood Pressure 182/84 H 02/14/25 21:19 Pulse Oximetry 97 02/14/25 21:19 Oxygen Delivery Method Room Air 02/14/25 21:19 Course Orders Ordered: Discontinued Medications Ceftriaxone Sodium 1,000 mg/ (Sodium Chloride) 100 mls @ 200 mls/hr IV NOW ONE Stop: 02/15/25 04:03 Last Infusion: 02/15/25 04:57 Dose: Infused Documented By: Admin: 02/15/25 04:12 Dose: 200 mls/hr Documented By: CARLEE Vital Signs Vital signs: Vital Signs - 8 hr 02/14/25 21:19 02/14/25 21:19 02/14/25 21:28 Pulse Rate 97 H 98 H 98 H Respiratory Rate 21 22 Blood Pressure 182/84 H Pulse Oximetry 97 95 96 Oxygen Delivery Method Room Air 02/14/25 21:28 02/14/25 21:30 02/14/25 21:30 Pulse Rate 97 H Respiratory Rate 21 Blood Pressure 182/84 H 175/82 H Pulse Oximetry 96 Oxygen Delivery Method 02/14/25 22:00 02/14/25 22:00 02/14/25 22:30 Pulse Rate 95 H 97 H Respiratory Rate 24 19 Blood Pressure 154/116 H Pulse Oximetry 95 95 Oxygen Delivery Method 02/14/25 22:30 02/14/25 23:00 02/14/25 23:00 Pulse Rate 100 H Respiratory Rate 19 Blood Pressure 165/74 H 169/92 H Pulse Oximetry 95 Oxygen Delivery Method 02/14/25 23:30 02/14/25 23:30 02/14/25 23:38 Pulse Rate 90 90 Respiratory Rate 17 15 Blood Pressure 169/78 H Pulse Oximetry 97 96 Oxygen Delivery Method 02/14/25 23:38 02/14/25 23:39 02/14/25 23:39 Pulse Rate 91 H Respiratory Rate 15 Blood Pressure 158/76 H 153/72 H Pulse Oximetry 96 Oxygen Delivery Method 02/15/25 00:00 02/15/25 00:00 02/15/25 00:30 Pulse Rate 91 H Respiratory Rate 14 Blood Pressure 180/79 H 133/68 Pulse Oximetry 96 Oxygen Delivery Method 02/15/25 00:30 02/15/25 01:00 02/15/25 01:01 Pulse Rate 85 85 86 Respiratory Rate 15 13 15 Blood Pressure Pulse Oximetry 95 97 97 Oxygen Delivery Method 02/15/25 01:01 02/15/25 01:30 02/15/25 01:30 Pulse Rate 85 Respiratory Rate 15 Blood Pressure 165/73 H 166/76 H Pulse Oximetry 98 Oxygen Delivery Method 02/15/25 02:18 02/15/25 02:19 02/15/25 02:19 Pulse Rate Respiratory Rate 16 Blood Pressure 174/84 H Pulse Oximetry 93 92 Oxygen Delivery Method 02/15/25 02:30 02/15/25 03:00 02/15/25 03:30 Pulse Rate 100 H 99 H 95 H Respiratory Rate 15 21 16 Blood Pressure Pulse Oximetry 90 L 87 L 93 Oxygen Delivery Method MDM - Altered Mental Status Lab Data Attestation: I reviewed the patient's lab results. Lab results narrative: POC glucose 136. White blood cell count 6900, hemoglobin 11.8, platelets adequate. Glucose 125. Slight increased BUN with normal creatinine, normal serum CO2 and potassium. Sodium 132 slight low. Alkaline phosphatase mild elevation, other liver functions normal. Troponin negative/unmeasurable x2 interval sets. Lactate and procalcitonin normal. Urinalysis pending. 02/14/25 21:16 02/14/25 21:16 Labs: Lab Results 02/14/25 02/14/25 02/14/25 Range/Units 21:16 21:29 23:43 WBC 6.9 (4.5-11.0) X10^3/uL RBC 4.05 (4.0-5.2) X10^6/uL Hgb 11.8 L (12.0-16.0) g/dL Hct 35.4 L (36-46) % MCV 87.4 (80-100) fL MCH 29.1 (26-34) PG MCHC 33.2 (30-36) % RDW 15.1 H (11.6-14.8) % Plt Count 279 (150-400) X10^3/uL Neut % (Auto) 52.9 (50-75) % Lymph % (Auto) 30.5 (25-40) % [place] % (Auto) 9.7 (3-14) % Eos % (Auto) 4.2 H (2-4) % Baso % (Auto) 2.7 H (0-2) % Neut # (Auto) 3700 (7745-3956) /uL Lymph # (Auto) 2100 (8431-9404) /uL [place] # (Auto) 700 (0-900) /uL Eos # (Auto) 300 (0-450) /uL Baso # (Auto) 200 H (0-100) /uL Sodium 132 L (137-145) mmol/L Potassium 3.6 (3.4-5.1) mmol/L Chloride 103 (98-107) mmol/L Carbon Dioxide 23 (22-32) mmol/L BUN 18 H (7-17) mg/dL Creatinine 1.04 (0.52-1.04) mg/dL Estimated GFR 52 L (>60) mL/min BUN/Creatinine Ratio 17.3 (6-22) Glucose 125 H (70-99) mg/dL POC Whole Bld Glucose 136 H (70-99) mg/dL Lactate 1.3 (0.7-2.1) mmol/L Calcium 8.9 (8.4-10.2) mg/dL Total Bilirubin 0.5 (0.2-1.3) mg/dL AST 21 (14-36) IU/L ALT 10 (<35) IU/L Alkaline Phosphatase 184 H (38-126) U/L Total Creatine Kinase 45 (30-135) U/L Troponin I < 0.012 < 0.012 (0.01-0.034) ng/mL Total Protein 7.2 (6.3-8.2) g/dL Albumin 3.9 (3.5-5.0) g/dL Globulin 3.3 (1.7-4.1) g/dL Albumin/Globulin Ratio 1.2 (1.0-2.8) Procalcitonin 0.060 (<0.5) ng/mL Urine Color Urine Appearance Urine pH (4.5-8.0) Ur Specific [place] (1.000-1.035) Urine Protein (Negative) Urine Glucose (UA) (Negative) g/dL Urine Ketones (NEGATIVE) Urine Occult Blood (Negative) Urine Nitrate (Negative) Urine Bilirubin (NEGATIVE) Urine Urobilinogen (0.2) E.U./dL Ur Leukocyte Esterase (NEGATIVE) Urine RBC (0-5/HPF) Urine WBC (0-5/HPF) Ur Squamous Epith Cells (0-5/HPF) Urine Bacteria (None) Ur Culture Indicated? Vol Urine Centrifuged U Opiates 300ng/mL cut (Negative) Ur Oxycodone Screen (Negative) Urine Methadone Screen (Negative) Ur Barbiturates Screen (Negative) U Tricyclic Antidepress (Negative) Ur Phencyclidine Scrn (Negative) Ur Amphetamines Screen (Negative) U Methamphetamines Scrn (Negative) Ur MDMA Scrn (Ecstasy) (Negative) U Benzodiazepines Scrn (Negative) Urine Cocaine Screen (Negative) U Marijuana (THC) Screen (Negative) Urine Specific [place] (Normal) Ethyl Alcohol < 10 (<10) mg/dL Ur Creatinine (Normal) 02/15/25 02/15/25 Range/Units 02:19 02:19 WBC (4.5-11.0) X10^3/uL RBC (4.0-5.2) X10^6/uL Hgb (12.0-16.0) g/dL Hct (36-46) % MCV (80-100) fL MCH (26-34) PG MCHC (30-36) % RDW (11.6-14.8) % Plt Count (150-400) X10^3/uL Neut % (Auto) (50-75) % Lymph % (Auto) (25-40) % [place] % (Auto) (3-14) % Eos % (Auto) (2-4) % Baso % (Auto) (0-2) % Neut # (Auto) (3765-6107) /uL Lymph # (Auto) (0761-1669) /uL [place] # (Auto) (0-900) /uL Eos # (Auto) (0-450) /uL Baso # (Auto) (0-100) /uL Sodium (137-145) mmol/L Potassium (3.4-5.1) mmol/L Chloride (98-107) mmol/L Carbon Dioxide (22-32) mmol/L BUN (7-17) mg/dL Creatinine (0.52-1.04) mg/dL Estimated GFR (>60) mL/min BUN/Creatinine Ratio (6-22) Glucose (70-99) mg/dL POC Whole Bld Glucose (70-99) mg/dL Lactate (0.7-2.1) mmol/L Calcium (8.4-10.2) mg/dL Total Bilirubin (0.2-1.3) mg/dL AST (14-36) IU/L ALT (<35) IU/L Alkaline Phosphatase (38-126) U/L Total Creatine Kinase (30-135) U/L Troponin I (0.01-0.034) ng/mL Total Protein (6.3-8.2) g/dL Albumin (3.5-5.0) g/dL Globulin (1.7-4.1) g/dL Albumin/Globulin Ratio (1.0-2.8) Procalcitonin (<0.5) ng/mL Urine Color Yellow Urine Appearance Sl cloudy Urine pH 6.0 Normal (4.5-8.0) Ur Specific [place] 1.010 (1.000-1.035) Urine Protein Negative (Negative) Urine Glucose (UA) Negative (Negative) g/dL Urine Ketones 1+ H (NEGATIVE) Urine Occult Blood Negative (Negative) Urine Nitrate Negative (Negative) Urine Bilirubin Negative (NEGATIVE) Urine Urobilinogen 1.0 (0.2) E.U./dL Ur Leukocyte Esterase 1+ H D (NEGATIVE) Urine RBC None seen (0-5/HPF) Urine WBC 1-5/hpf (0-5/HPF) Ur Squamous Epith Cells 5-10 /hpf H (0-5/HPF) Urine Bacteria Few (2-10) H (None) Ur Culture Indicated? Specimen cultured Vol Urine Centrifuged 10ml (spun) U Opiates 300ng/mL cut Negative (Negative) Ur Oxycodone Screen Negative (Negative) Urine Methadone Screen Negative (Negative) Ur Barbiturates Screen Negative (Negative) U Tricyclic Antidepress Positive H (Negative) Ur Phencyclidine Scrn Negative (Negative) Ur Amphetamines Screen Negative (Negative) U Methamphetamines Scrn Negative (Negative) Ur MDMA Scrn (Ecstasy) Negative (Negative) U Benzodiazepines Scrn Negative (Negative) Urine Cocaine Screen Negative (Negative) U Marijuana (THC) Screen Negative (Negative) Urine Specific [place] Normal (Normal) Ethyl Alcohol (<10) mg/dL Ur Creatinine Normal (Normal) Point of Care Testing Glucose POC 136 Imaging Data Chest x-ray: Radiologist's Impression: [address] [address] XRay Report Signed Patient: Tracey Rodriguez MR#: [id number] : 1940 Acct:[id number] Age/Sex: 84 / F Date of Service: 02/14/25 Loc: ED Accession Number: [id number] Procedure: XR chest 1V Ordering Provider: Ivis Perez MD PROCEDURE: XR CHEST 1V INDICATIONS: altered mental status TECHNIQUE: One view of the chest was acquired. COMPARISON: [facility], , XR CHEST 1V, 10/27/2023, 7:33. FINDINGS: Surgical changes and devices: Clips in the right upper quadrant. Lungs and pleura: Lungs are clear. No pleural effusions or pneumothorax. Mediastinum: Mediastinal contours appear unchanged. Heart size appears prominent. Bones and chest wall: No suspicious bony lesions. Prior right-sided rib fractures. Overlying soft tissues appear unremarkable. IMPRESSION: No acute cardiopulmonary abnormality is seen. Dictated by: Toni Blackman M.D. on 02/14/2025 at 22:08 Approved by: Toni Blackman M.D. on 02/14/2025 at 22:09 CT scan - head: Radiologist's Impression: [address] [address] [address] Scan Report Signed Patient: Tracey Rodriguez MR#: [id number] : 1940 Acct:[id number] Age/Sex: 84 / F Date of Service: 02/15/25 Loc: ED Accession Number: [id number] Procedure: CT head/brain wo con Ordering Provider: Bradley Galeas MD PROCEDURE: CT HEAD/BRAIN WO CON INDICATIONS: alt MSE, hx dementia TECHNIQUE: Noncontrast 4.5 mm thick angled axial sections acquired from the foramen magnum to the vertex, with coronal and sagittal reformats. For radiation dose reduction, the following was used: automated exposure control, adjustment of mA and/or kV according to patient size. COMPARISON: [facility], CT, CT HEAD/BRAIN WO CON, 02/08/2022, 13:54. FINDINGS: Image quality: Diagnostic. CSF spaces: Basal cisterns are patent. No extra-axial fluid collections. Ventricles are normal in size and shape. Brain: No midline shift. No intracranial mass effect or hemorrhage. No area of hypodensity in a large vascular distribution to suggest acute infarction. Periventricular hypodensity consistent with chronic microvascular ischemic change. Age-related parenchymal loss. Skull and face: Calvarium and visualized facial bones are intact, without suspicious lesions. Sinuses: Visualized sinuses and mastoids are clear. IMPRESSION: No acute intracranial pathology. Findings of chronic microvascular ischemic disease. Dictated by: Toni Blackman M.D. on 02/15/2025 at 2:24 Approved by: Toni Blackman M.D. on 02/15/2025 at 2:26 CTA - brain/neck: Radiologist's Impression: [address] [address] [address] Scan Report Signed Patient: Tracey Rodriguez MR#: [id number] : 1940 Acct:[id number] Age/Sex: 84 / F Date of Service: 02/15/25 Loc: Accession Number: [id number] Procedure: CT angio head and neck Ordering Provider: Bradley Galeas MD PROCEDURE: CT ANGIO HEAD AND NECK INDICATIONS: alt MSE TECHNIQUE: After the administration of intravenous contrast, 1 mm thick sections acquired from the aortic arch through the [place] of [place]. 3-dimensional dnyabwx-iqygptiyp-mwnozccfya (MIP) and/or volume rendering reformats were acquired of the central intracranial vasculature and neck separately. For radiation dose reduction, the following was used: automated exposure control, adjustment of mA and/or kV according to patient size. COMPARISON: [facility], CT, CT HEAD/BRAIN WO CON, 02/08/2022, 13:54. [facility], CT, CT HEAD/BRAIN WO CON, 02/15/2025, 1:32. FINDINGS: Image quality: Diagnostic. Cerebral CT Angiogram: Internal carotid arteries: No acute findings. Intracranial ICA are patent with no significant stenosis. No occlusion. No aneurysm. Anterior cerebral arteries: Unremarkable. No significant stenosis. No occlusion. No aneurysm. Middle cerebral arteries: Unremarkable. No significant stenosis. No occlusion. No aneurysm. Posterior cerebral arteries: Unremarkable. No significant stenosis. No occlusion. No aneurysm. Basilar artery: Unremarkable. No significant stenosis. No occlusion. No aneurysm. Vertebral arteries: Unremarkable as visualized. Dural venous sinuses: Unremarkable given phase of enhancement. Other: Arterial phase appearance of the brain parenchyma is unremarkable. Neck CT Angiogram: Internal carotid arteries: Dense plaque at the carotid bulbs. Right 50-69% stenosis is estimated, (6/206). Less than 50% stenosis on the left. No dissection or occlusion. Common carotid arteries: Unremarkable. No significant stenosis. No dissection or occlusion. External carotid arteries: Unremarkable. No occlusion. Vertebral arteries: Unremarkable. No significant stenosis. No dissection or occlusion. Aortic Arch and Mediastinum: Partially visualized aortic arch unremarkable without evidence of aneurysm. Origins of the great vessels unremarkable. Other: Arterial phase soft tissues of the neck and chest are unremarkable. Emphysematous change. Bones: Heterogeneous appearance. Moderate degenerative changes. IMPRESSION: 1. No large vessel occlusion. 2. Right ICA 50-69% stenosis is estimated. Left ICA less than 50% stenosis. -Recommend follow-up carotid Doppler. 3. Bones have a diffuse heterogeneous appearance. -If concern for occult metastatic disease, nuclear medicine bone scan may be helpful. Any quantitative measurements of stenosis were performed using NASCET criteria. Dictated by: Toni Blackman M.D. on 02/15/2025 at 2:27 Approved by: Toni Blackman M.D. on 02/15/2025 at 2:35 ECG Data Attestation: I personally reviewed and interpreted this ECG as follows: Interpretation: 2126, sinus rhythm with rate 98, no obvious ST segment elevation or depression changes. Q-waves lead 3 noted. [place] 162, QRS 90, QTC 418. 2335, sinus rhythm with premature supraventricular beats, ventricular response rate 91. Q-waves inferior again noted. [place] 160, QRS 80, QTC 455. No significant change from prior study this visit. MDM Narrative Medical decision making narrative: 84-year-old female half-way patient with dementia, noted by staff/son to have decreased mental status from baseline. Son we would like workup for secondary causes, we would like imaging when we discussed options. CT head noncontrast, CTA head and neck vessels ordered. Labs pending, EKG, chest x-ray, urinalysis. EKG shows normal sinus rhythm, without obvious acute ischemic changes. Chest x-ray shows no acute changes. See radiology report. Lab data: POC glucose 136. White blood cell count 6900, hemoglobin 11.8, platelets adequate. Glucose 125. Slight increased BUN with normal creatinine, normal serum CO2 and potassium. Sodium 132 slight low. Alkaline phosphatase mild elevation, other liver functions normal. Troponin negative/unmeasurable x2 interval sets. Lactate and procalcitonin normal. Urinalysis pending. CT Head noncontrast. No acute changes. Findings of chronic microvascular ischemic disease. See radiology report. CTA head and neck vessels. No large vessel occlusion. Right ICA 50-69% stenosis estimated. Left ICA less than 50% stenosis estimated. Diffuse heterogeneous bony changes. See radiology report. Sodium low in past, Na 132 slight low only now. Cath UA requested, no specimen from [facility] thus far. UA suspicious for UTI, urine cultured, IV Ceftriaxone. Will print Rx Cefdinir 7d course antibiotics, to be filled via [facility]. DC back to [facility] via BLS transport. Discharge Plan Departure Patient Disposition: Home Clinical Impression: Urinary tract infection, Abrasion of anterior abdominal wall Activity Restrictions/Additional Instructions: Confusion at half-way. CT brain and CT angiogram head and neck vessels showed no critical actionable findings. Lab testing generally unremarkable as well. EKG unremarkable. Urinalysis eventually was obtained by catheter specimen. Suspicious for possible infection. IV ceftriaxone antibiotic given, printed prescription for further antibiotic cefdinir to take by mouth for the next 7 days provided for discharge. Advised to drink plenty of fluids. Advised to take full course of antibiotic as prescribed. Consider recheck of symptoms later this week with your regular provider. Return to this/nearest emergency department for any change worsening symptoms or any concerns prior. Incidentally also noted scattered small skin lesion changes to the anterior abdomen, photo documentation done, none seem grossly fluctuant to require drainage procedure, hopefully the cefdinir antibiotic will help clear them up, appearance seems consistent with abrasion/scabbing from recent picking. Consider use of topical antibiotic ointment twice daily over affected abrasions skin change areas anterior abdomen. Advised to have recheck of skin lesions in clinic later this week as well. Prescriptions: New cefdinir 300 mg capsule 300 mg PO BID 7 Days Qty: 14 0RF cefdinir 300 mg capsule 300 mg PO BID 7 Days Qty: 14 0RF No Action oxycodone 5 mg tablet PO quetiapine 50 mg tablet 50 mg PO ONCE PM amlodipine-benazepril 2.5-10 mg capsule 1 cap PO DAILY furosemide 20 mg tablet 20 mg PO DAILY atorvastatin 80 mg tablet 80 mg PO DAILY primidone 50 mg tablet PO Qvar RediHaler 80 mcg/actuation HFA aerosol breath activated inhalation acetaminophen-codeine 300-30 mg tablet PO ezetimibe 10 mg tablet 10 mg PO DAILY metoprolol succinate 25 mg tablet extended release 24 hr PO citalopram 20 mg tablet 20 mg PO DAILY Spiriva Respimat 2.5 mcg/actuation mist 2 puff inhalation DAILY amlodipine-benazepril 10-20 mg capsule 1 cap PO DAILY pantoprazole 40 mg tablet,delayed release (DR/EC) 40 mg PO DAILY Referrals: Shawn Richards MD [Primary Care Provider, Family Practice] Stand Alone Forms: Patient Portal/API
--- NOTE | 2025-02-14 23:55 | EKG_ITS ---
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
[2025-02-15] VITALS (15 sets, daily range): BP systolic 133–185; BP diastolic 68–84; PULSE 85–100; RESP 13–21; TEMP 36.6; O2SAT 87–98
[2025-02-15 00:14] LABS: Troponin I < 0.012 ng/mL (0.01-0.034)
--- NOTE | 2025-02-15 01:12 | DI.CT.S_ITS ---
PROCEDURE: CT HEAD/BRAIN WO CON INDICATIONS: alt MSE, hx dementia TECHNIQUE: Noncontrast 4.5 mm thick angled axial sections acquired from the foramen magnum to the vertex, with coronal and sagittal reformats. For radiation dose reduction, the following was used: automated exposure control, adjustment of mA and/or kV according to patient size. COMPARISON: [facility], CT, CT HEAD/BRAIN WO CON, 02/08/2022, 13:54. FINDINGS: Image quality: Diagnostic. CSF spaces: Basal cisterns are patent. No extra-axial fluid collections. Ventricles are normal in size and shape. Brain: No midline shift. No intracranial mass effect or hemorrhage. No area of hypodensity in a large vascular distribution to suggest acute infarction. Periventricular hypodensity consistent with chronic microvascular ischemic change. Age-related parenchymal loss. Skull and face: Calvarium and visualized facial bones are intact, without suspicious lesions. Sinuses: Visualized sinuses and mastoids are clear. IMPRESSION: No acute intracranial pathology. Findings of chronic microvascular ischemic disease. Dictated by: Toni Blackman M.D. on 02/15/2025 at 2:24 Approved by: Toni Blackman M.D. on 02/15/2025 at 2:26
--- NOTE | 2025-02-15 01:15 | DI.CT.S_ITS ---
PROCEDURE: CT ANGIO HEAD AND NECK INDICATIONS: alt MSE TECHNIQUE: After the administration of intravenous contrast, 1 mm thick sections acquired from the aortic arch through the [place] of [place]. 3-dimensional znutamw-vfbddiaax-hqisnltolu (MIP) and/or volume rendering reformats were acquired of the central intracranial vasculature and neck separately. For radiation dose reduction, the following was used: automated exposure control, adjustment of mA and/or kV according to patient size. COMPARISON: [facility], CT, CT HEAD/BRAIN WO CON, 02/08/2022, 13:54. [facility], CT, CT HEAD/BRAIN WO CON, 02/15/2025, 1:32. FINDINGS: Image quality: Diagnostic. Cerebral CT Angiogram: Internal carotid arteries: No acute findings. Intracranial ICA are patent with no significant stenosis. No occlusion. No aneurysm. Anterior cerebral arteries: Unremarkable. No significant stenosis. No occlusion. No aneurysm. Middle cerebral arteries: Unremarkable. No significant stenosis. No occlusion. No aneurysm. Posterior cerebral arteries: Unremarkable. No significant stenosis. No occlusion. No aneurysm. Basilar artery: Unremarkable. No significant stenosis. No occlusion. No aneurysm. Vertebral arteries: Unremarkable as visualized. Dural venous sinuses: Unremarkable given phase of enhancement. Other: Arterial phase appearance of the brain parenchyma is unremarkable. Neck CT Angiogram: Internal carotid arteries: Dense plaque at the carotid bulbs. Right 50-69% stenosis is estimated, (6/206). Less than 50% stenosis on the left. No dissection or occlusion. Common carotid arteries: Unremarkable. No significant stenosis. No dissection or occlusion. External carotid arteries: Unremarkable. No occlusion. Vertebral arteries: Unremarkable. No significant stenosis. No dissection or occlusion. Aortic Arch and Mediastinum: Partially visualized aortic arch unremarkable without evidence of aneurysm. Origins of the great vessels unremarkable. Other: Arterial phase soft tissues of the neck and chest are unremarkable. Emphysematous change. Bones: Heterogeneous appearance. Moderate degenerative changes. IMPRESSION: 1. No large vessel occlusion. 2. Right ICA 50-69% stenosis is estimated. Left ICA less than 50% stenosis. -Recommend follow-up carotid Doppler. 3. Bones have a diffuse heterogeneous appearance. -If concern for occult metastatic disease, nuclear medicine bone scan may be helpful. Any quantitative measurements of stenosis were performed using NASCET criteria. Dictated by: Toni Blackman M.D. on 02/15/2025 at 2:27 Approved by: Toni Blackman M.D. on 02/15/2025 at 2:35
[2025-02-15 02:27] LABS: Appearance Urine UA SL CLOUDY; Bilirubin Urine UA NEGATIVE (NEGATIVE); Color Urine UA YELLOW; Glucose Urine UA NEGATIVE (Negative); Ketones Urine UA 1+ (NEGATIVE); Leukocyte Esterase Urine UA 1+ (NEGATIVE); Nitrite Urine UA NEGATIVE (Negative); Occult Blood Urine UA NEGATIVE (Negative); Protein Urine UA NEGATIVE (Negative); Specific Gravity Urine UA 1.010 (1.000-1.035); Urobilinogen Urine UA 1.0 E.U./dL (0.2)
[2025-02-15 02:32] LABS: Ur Creatinine Normal (Normal); Ur Specific Gravity Normal (Normal); Urine MDMA Negative (Negative); Urine Methamphetamines Negative (Negative); Urine THC Negative (Negative); Urine pH Normal (Normal)
[2025-02-15 02:33] LABS: Urine Tricyclic Antidepressant Positive (Negative)
[2025-02-15 02:35] LABS: pH Urine UA 6.0 (4.5-8.0)
[2025-02-15 02:36] LABS: Culture Indicated Urine Specimen Cultured
--- NOTE | 2025-02-15 05:11 | PC.NURSE ---
Report called to [facility] nurse
--- NOTE | 2025-02-15 05:30 | PC.NURSE ---
Report given/care transferred to [facility] transport team
== END 2025-02-15 05:35 | disposition home or self-care (01) ==
PROVIDERS: Emergency Medicine; Emergency Provider Emergency Medicine; PCP Student in an Organized Health Care Education/Training Program
DX: N39.0 Urinary tract infection, site not specified (principal); S30.811A Abrasion of abdominal wall, initial encounter; R94.31 Abnormal electrocardiogram [ECG] [EKG]
CPT/HCPCS: 70450; 70496; 70498; 71045; 80053; 80305; 80320; 81001; 82550; 82962; 83605; 84145; 84484; 85025; 87040; 87086; 87147; 93005; 93010; 96365; 99284; J0696; J7050; Q9967